=== PATIENT | male | born 1965 | race Caucasian/White ===

== ENCOUNTER 2016-08-11 15:33 | Emergency (ER) | payer OTHER ==
[~2016-08-11] VITALS: Ht 180.3 cm; Wt 63.6 kg
[~2016-08-11 15:33] MED LIST: ATV1 PO; DIPH-416 PO; PROM1SUP19 PR; PRT/40 PO; PXL20 PO
[2016-08-11 15:39] VITALS: TEMP 36.9; Ht 180.3 cm; Wt 63.6 kg
[2016-08-11] MEDS ORDERED: PARO1TAB29 PO (17:17)
[2016-08-11] MEDS ORDERED: ZFRODT/8 SL (17:17)
[2016-08-11] MEDS ORDERED: ONDANSETRON INJ 2 MG/ML 2 ML VIAL IV STA (17:21)
[2016-08-11] MEDS ORDERED: SODIUM CHLORIDE 0.9% 1000ML 2,000 ML IV STA (17:21)
[2016-08-11 18:07] LABS: BASO % 0.1 %; BASO ABS # 0.01 K/uL (0-0.2); COMPLETE YES; EOS % 0.2 %; HEMATOCRIT 44.8 % (42-52); IG% 0.3 %; LYMPH % 28.4 %; LYMPH ABS # 2.81 K/uL (1.2-3.4); MEAN CELL VOLUME 85.5 fL (80-100); MEAN CORPUSCULAR HEMOGLOBIN 32.1 pg (25-34); MEAN CORPUSCULAR HGB CONC 37.5 g/dl (32-36); MONO % 8.6 %; NEUT % 62.4 %; PLATELET COUNT 342 K/uL (130-400); RED BLOOD COUNT 5.24 M/uL (4.7-6.1); WHITE BLOOD COUNT 9.88 K/uL (4.8-10.8)
[2016-08-11 18:23] LABS: ALT/SGPT 32 U/L (12-78); AST/SGOT 17 U/L (15-37); BLOOD UREA NITROGEN 29 mg/dl (7-18); BUN/CREATININE RATIO 26.3 (10-20); CALCIUM 9.7 mg/dl (8.5-10.1); CARBON DIOXIDE 25 mmol/L (21-32); CHLORIDE 99 mmol/L (98-107); GLUCOSE 104 mg/dl (70-99); MAGNESIUM 2.5 mg/dl (1.8-2.4); POTASSIUM 2.9 mmol/L (3.5-5.1); SODIUM 136 mmol/L (136-145)
[2016-08-11 18:26] LABS: ALKALINE PHOSPHATASE 50 U/L (45-117); C-REACTIVE PROTEIN < 0.29 mg/dl (0-0.29)
--- NOTE | 2016-08-11 19:14 | DIAGNOSTIC IMAGING REPORT ---
ABDOMEN 2VIEW W/PA CHEST RTN CLINICAL HISTORY: Nausea, vomiting, lower abdominal pain COMPARISON STUDY: 01/20/2016 FINDINGS: The erect chest reveals no evidence of free air. There is no evidence of focal pulmonary consolidation.] Erect and supine views of the abdomen reveal no abnormally dilated loops of large or small bowel. There are no transition zone to indicate bowel obstruction. IMPRESSION: No evidence of bowel obstruction. No evidence of free air. Electronically signed by: Thomas Schmitt M.D. 08/11/2016 7:13 PM Dictated Date/Time: 08/11/2016 7:12 PM
[2016-08-11] MEDS ORDERED: POTASSIUM CHLORIDE 10 MEQ TABCR PO STA (20:38)
[2016-08-11] MEDS ORDERED: ONDANSETRON HOME PACK 4MG OD TAB PO ONE (20:45)
[2016-08-11] MEDS ORDERED: PROMETHAZINE HCL 25 MG SUPP PR ONE (20:45)
[2016-08-11 20:55] LABS: URINE APPEARANCE CLEAR (CLEAR); URINE BILIRUBIN NEG (NEG); URINE COLOR DK YELLOW; URINE NITRITE NEG (NEG); URINE PH 5.5 (4.5-7.5); URINE SPECIFIC GRAVITY 1.025 (1.000-1.030); UROBILINOGEN NEG (NEG); ZZUR CULT IF INDIC CLEAN CATCH NO
[2016-08-11] MEDS ORDERED: ONDA4TAB10 SL (20:55)
[2016-08-11] MEDS ORDERED: PROM1SUP19 PR (20:55)
--- NOTE | 2016-08-11 20:56 | EMERGENCY ROOM VISIT NOTE ---
History First contact with patient: 16:55 Chief Complaint: ABDOMINAL PAIN Stated Complaint: ABD PAIN,NAUSEA, VOMITING SINCE MONDAY Nursing Triage Summary: pt vomiting since monday, c/o abd pain, states he has had this before and they never know what is wrong with him they given him fluid because he is dehydrated , last bm monday History of Present Illness The patient is a 51 year old male who presents to the Emergency Department by private vehicle for evaluation of his nausea, vomiting, and abdominal pain. The patient has a history of similar symptoms in the past. On Monday morning when he awoke feeling "sick". He developed nausea and vomiting at that point. He had several small bowel movements at that point as well. His symptoms persisted with nausea and vomiting throughout the day. On Monday he felt somewhat better. On Monday morning, his nausea and vomiting had worsened. He reports since that time he has developed pain diffusely through his abdomen. He has headaches as well as dizziness and lightheadedness. He is had an approximate 15 bowel weight loss per family. Patient has been unable tolerate by mouth food and fluids. He reports a prior hernia surgery. Otherwise, there is been no abdominal surgeries otherwise. He rates his current discomfort as a 7/10. He denies any fevers, chills, chest pain, palpitations, shortness of breath, hematemesis, hematochezia, melena, hematuria, or dysuria. The patient does admit to smoking marijuana heavily recently. He also drank alcohol heavily over the weekend as well. Review of Systems A complete 10-point Review of Systems was discussed with the patient, with pertinent positives and negatives listed in the History of Present Illness. All remaining Review of Systems questions can be considered negative unless otherwise specified. Past Medical/Surgical History Medical Problems: (1) bunion surgery (2) GERD (gastroesophageal reflux disease) (3) Hemorrhoid Surgical Problems: (1) H/O colonoscopy (2) H/O hernia repair (3) H/O vasectomy (4) History of esophagogastroduodenoscopy (EGD) (5) S/P herniorrhaphy Family History Diabetes mellitus Heart disease Kidney disease Social History Smoking Status: Former Smoker Alcohol Use: occasionally Drug Use: none Marital Status: Housing Status: lives with family Occupation Status: employed Current/Historical Medications Scheduled Pantoprazole (Pantoprazole Sodium), 1 TAB PO DAILY Paroxetine (Paxil), 40 MG PO DAILY Scheduled PRN Lorazepam (Lorazepam), 1 TAB PO TID PRN for Anxiety Ondansetron (Ondansetron Odt), 8 MG SL Q8 PRN for Nausea Ondasetron Odt (Zofran Odt), 1 TAB SL Q6 PRN for Nausea or Vomiting Promethazine (Phenergan Suppository), 1 SUPP NV Q4H PRN for Nausea Promethazine (Phenergan Suppository), 25 MG NV Q4H PRN for Nausea Allergies Coded Allergies: No Known Allergies (Unverified , 08/11/16) Physical Exam Vital Signs Date Time Temp Pulse Resp B/P Pulse Ox O2 Delivery O2 Flow Rate FiO2 08/11/16 21:21 70 18 137/81 96 08/11/16 19:47 74 18 127/76 97 Room Air 08/11/16 18:03 90 18 129/90 96 Room Air 94 130/79 87 102/75 08/11/16 15:39 36.9 116 18 149/95 97 Room Air Pain Rating (0-10): 7 Physical Exam VITAL SIGNS - Vital signs and nursing notes were reviewed. GENERAL - 51-year-old male appearing his stated age who is in no acute distress. Communicates well with provider and answers questions appropriately. LUNGS - Chest wall symmetric without accessory muscle use, intercostals retractions, or central cyanosis. Normal vesicular breath sounds CTA B/L. No wheezes, rales, or rhonchi appreciated. CARDIAC - RRR with S1/S2. No murmur, rubs, or gallops appreciated. ABDOMEN - Abdominal contour flat and without pulsations or visible masses. BS normoactive all four quadrants. Mild tenderness to palpation appreciated diffusely throughout. No guarding. No Rebound Tenderness. Negative Rovsing's. Negative Sarmiento's. No palpable masses, hepatosplenomegaly, or ascites noted. EXTREMITIES - No clubbing or peripheral cyanosis. No pretibial edema present. +3 /5 radial and dorsalis pedis pulses palpated throughout. PSYCH - A&Ox3 and cooperates fully with examiner. Pt is very pleasant and interacts well with examiner. Medical Decision & Procedures ER Provider Diagnostic Interpretation: Radiological imaging and reports were reviewed by myself. Radiologist's Interpretation as follows: ABDOMEN 2VIEW W/PA CHEST RTN CLINICAL HISTORY: Nausea, vomiting, lower abdominal pain COMPARISON STUDY: 01/20/2016 FINDINGS: The erect chest reveals no evidence of free air. There is no evidence of focal pulmonary consolidation.] Erect and supine views of the abdomen reveal no abnormally dilated loops of large or small bowel. There are no transition zone to indicate bowel obstruction. IMPRESSION: No evidence of bowel obstruction. No evidence of free air. Laboratory Results 08/11/16 17:52 Red Blood Count 5.24, Mean Corpuscular Volume 85.5, Mean Corpuscular Hemoglobin 32.1, Mean Corpuscular Hemoglobin Concent 37.5, Mean Platelet Volume 10.0, Neutrophils (%) (Auto) 62.4, Lymphocytes (%) (Auto) 28.4, Monocytes (%) (Auto) 8.6, Eosinophils (%) (Auto) 0.2, Basophils (%) (Auto) 0.1, Neutrophils # (Auto) 6.16, Lymphocytes # (Auto) 2.81, Monocytes # (Auto) 0.85, Eosinophils # (Auto) 0.02, Basophils # (Auto) 0.01 08/11/16 17:52 Test 08/11/16 17:52 08/11/16 20:30 White Blood Count 9.88 K/uL (4.8-10.8) Red Blood Count 5.24 M/uL (4.7-6.1) Hemoglobin 16.8 g/dL (14.0-18.0) Hematocrit 44.8 % (42-52) Mean Corpuscular Volume 85.5 fL (80-100) Mean Corpuscular Hemoglobin 32.1 pg (25-34) Mean Corpuscular Hemoglobin Concent 37.5 g/dl (32-36) Platelet Count 342 K/uL (130-400) Mean Platelet Volume 10.0 fL (7.4-10.4) Neutrophils (%) (Auto) 62.4 % Lymphocytes (%) (Auto) 28.4 % Monocytes (%) (Auto) 8.6 % Eosinophils (%) (Auto) 0.2 % Basophils (%) (Auto) 0.1 % Neutrophils # (Auto) 6.16 K/uL (1.4-6.5) Lymphocytes # (Auto) 2.81 K/uL (1.2-3.4) Monocytes # (Auto) 0.85 K/uL (0.11-0.59) Eosinophils # (Auto) 0.02 K/uL (0-0.5) Basophils # (Auto) 0.01 K/uL (0-0.2) RDW Standard Deviation 39.4 fL (36.4-46.3) RDW Coefficient of Variation 12.6 % (11.5-14.5) Immature Granulocyte % (Auto) 0.3 % Immature Granulocyte # (Auto) 0.03 K/uL (0.00-0.02) Erythrocyte Sedimentation Rate 15 mm/hr (0-14) Anion Gap 12.0 mmol/L (3-11) Est Creatinine Clear Calc Drug Dose 70.7 ml/min Estimated GFR () 89.0 Estimated GFR (Non- 76.8 BUN/Creatinine Ratio 26.3 (10-20) Calcium Level 9.7 mg/dl (8.5-10.1) Magnesium Level 2.5 mg/dl (1.8-2.4) Total Bilirubin 1.5 mg/dl (0.2-1) Aspartate Amino Transf (AST/SGOT) 17 U/L (15-37) Alanine Aminotransferase (ALT/SGPT) 32 U/L (12-78) Alkaline Phosphatase 50 U/L (45-117) C-Reactive Protein < 0.29 mg/dl (0-0.29) Total Protein 8.8 gm/dl (6.4-8.2) Albumin 4.5 gm/dl (3.4-5.0) Globulin 4.3 gm/dl (2.5-4.0) Albumin/Globulin Ratio 1.0 (0.9-2) Lipase 247 U/L (73-393) Urine Color DK YELLOW Urine Appearance CLEAR (CLEAR) Urine pH 5.5 (4.5-7.5) Urine Specific [place] 1.025 (1.000-1.030) Urine Protein TRACE (NEG) Urine Glucose (UA) NEG (NEG) Urine Ketones 1+ (NEG) Urine Occult Blood NEG (NEG) Urine Nitrite NEG (NEG) Urine Bilirubin NEG (NEG) Urine Urobilinogen NEG (NEG) Urine Leukocyte Esterase TRACE (NEG) Urine WBC (Auto) 1-5 /hpf (0-5) Urine RBC (Auto) 0-4 /hpf (0-4) Urine Hyaline Casts (Auto) 5-10 /lpf (0-5) Urine Epithelial Cells (Auto) 5-10 /lpf (0-5) Urine Bacteria (Auto) NEG (NEG) Urine Opiates Screen NEG (NEG) Urine Methadone, Qualitative NEG (NEG) Urine Barbiturates NEG (NEG) Urine Phencyclidine (PCP) Level NEG (NEG) Ur Amphetamine/Methamphetamine NEG (NEG) MDMA (Ecstasy) Screen NEG (NEG) Urine Benzodiazepines Screen NEG (NEG) Urine Cocaine Metabolite NEG (NEG) Urine Marijuana (THC) POS (NEG) Medications Administered Medications (Trade) Dose Ordered Sig/Leah Route Start Time Stop Time Status Last Admin Dose Admin Sodium Chloride (Nss 1000ml) 2,000 ml @ 999 mls/hr Q2H1M STAT IV 08/11/16 17:21 08/11/16 19:21 DC 08/11/16 18:06 999 MLS/HR Ondansetron HCl (Zofran Inj) 4 mg NOW STAT IV 08/11/16 17:21 08/11/16 17:23 DC 08/11/16 18:07 4 MG Potassium Chloride (Klor-Con M10) 40 meq NOW STAT PO 08/11/16 20:38 08/11/16 20:39 DC 08/11/16 21:15 40 MEQ Promethazine HCl (Phenergan Supp) 50 mg NOW ONCE NV 08/11/16 20:45 08/11/16 20:46 DC 08/11/16 21:15 50 MG Ondansetron HCl (ZOFRAN ODT 4MG Home Pack) 1 homepack UD ONCE PO 08/11/16 20:45 08/11/16 20:46 DC 08/11/16 21:15 1 HOMEPACK ED Course Patient was seen and evaluated by myself. Labs were drawn, saline lock in place. The patient was hydrated with a 2000 mL normal saline bolus. He received 4 mg Zofran intravenously. Obstruction series was obtained. Laboratory results demonstrate no acute leukocytosis, worrisome anemia, or bandemia. The patient's potassium was found to be low at 2.9. Total bili was mildly elevated at 1.5. CRP was not elevated. Patient was reevaluated and feels markedly better at this time. He was treated with 40 mEq of potassium chloride orally. Patient feels much better at this time. He requests to be discharged home. He was provided a home pack for Phenergan as well as Zofran. He is provided prescriptions for both. The patient was educated on refraining from marijuana use. He is instructed to follow-up with his specialists from today's visit. He was educated on worrisome symptoms for return visit to the emergency department. Patient discharged home afebrile and in good condition. Medical Decision Given the patient's presentation and stated complaints, I did elect to perform the above-mentioned workup. The patient presents complaining of abdominal pain as well as nausea and vomiting. Patient has had previous similar episodes in the past. He has no fever leukocytosis. His abdomen is minimally tender to palpation throughout. His symptoms resolved after IV fluid hydration and antinausea medication. At this point, the patient appears markedly better and is requesting discharge. He did request occasions for antinausea in the event that this returns again. I'm suspicious that this could be a component of cyclic vomiting syndrome secondary to his marijuana use. Regardless, the patient will follow closely with his primary care provider for continued management. He will return for changing/worsening symptoms. Patient discharged home afebrile and in good condition. In the evaluation and treatment of this patient, the following differential diagnoses were considered: Appendicitis, Diverticulitis, Diverticulosis, Colitis , Ischemic Colitis, Inflammatory Bowel Disease, Irritable Bowel Disease, Testicular Torsion, Kidney Stone, Pyelonephritis, Hydronephrosis, Cholecystitis , Ascending Cholangitis, Choledocholithiasis, GERD. Impression Primary Impression: Vomiting Additional Impression: Hypokalemia Departure Information Dispostion Home / Self-Care Condition GOOD Prescriptions Promethazine (Phenergan Suppository) 25 Mg Supp 25 MG NV Q4H Y for Nausea for 7 Days, #42 SUPP Prov: Hector Junior PA-C 08/11/16 Ondasetron Odt (ZOFRAN ODT) 4 Mg Tab 1 TAB SL Q6 Y for Nausea or Vomiting for 5 Days, #20 TAB Prov: Hector Junior PA-C 08/11/16 Referrals Juanpablo Vick, D.O. (PCP) Patient Instructions Cyclic Vomiting Syndrome , [facility] Additional Instructions You have been treated in the Emergency Department your Nausea and Vomiting. You have been prescribed Zofran and Phenergan to be used for any nausea or vomiting. Take as prescribed. For pain control, you can use the following [id number] medicines (if >12 yo): - Regular strength (325mg/tab) Tylenol (acetaminophen) 2 tabs every 4-6 hours as needed. Do not exceed 12 tablets in a 24 hour period. Avoid taking more than 4 grams (4000 mg) of Tylenol per day. This includes any other sources of acetaminophen you may take on a regular basis. - Regular strength (200 mg/tab) Advil (ibuprofen) 1-2 tabs every 4-6 hours as needed. Do not exceed a dose of 3200 mg per day. Drink plenty of water and stay well hydrated. As with any trip to the Emergency Department, you should follow-up with your Primary Care Provider from today's visit. Return to the emergency department if your symptoms persist despite treatment plan outlined above or if the following symptoms occur: increased fevers, chills , worsening nausea/vomiting, blood in your stool or urine. Problem Qualifiers Primary Impression: Vomiting Vomiting type: cyclical vomiting Vomiting Intractability: non-intractable Nausea presence: with nausea Qualified Codes: G43.A0 - Cyclical vomiting, not intractable
[2016-08-11 20:57] LABS: MANUAL MICROSCOPIC REQUIRED? NO; REVIEW REQ? NO
[2016-08-11 21:21] VITALS: BP 137/81; PULSE 70; O2SAT 96
[2016-08-11 21:23] LABS: BENZODIAZEPINE, URINE NEG (NEG); COCAINE,URINE NEG (NEG); PHENCYCLIDINE, URINE NEG (NEG)
== END 2016-08-11 21:23 | disposition home or self-care (01) ==
LOC: C.EDB 15:34
DX: G43.A0 Cyclical vomiting, in migraine, not intractable (principal); E87.6 Hypokalemia; Z87.891 Personal history of nicotine dependence; Z83.3 Family history of diabetes mellitus; Z82.49 Family history of ischemic heart disease and other diseases of the circulatory system

== ENCOUNTER 2016-09-06 06:01 | Emergency (ER) | payer OTHER ==
[~2016-09-06] VITALS: Ht 177.8 cm; Wt 67.6 kg
[~2016-09-06 06:01] MED LIST changes: -DIPH-416 PO; +PANT40TA2 PO; +PARO1TAB29 PO; -PRT/40 PO; -PXL20 PO; +ZFRODT/8 SL
[2016-09-06 06:10] VITALS: TEMP 36.7; Ht 177.8 cm; Wt 67.6 kg
--- NOTE | 2016-09-06 07:09 | EMERGENCY ROOM VISIT NOTE ---
History Report prepared by Mary: Danna Simmons Under the Supervision of: Dr. Torrey Owens M.D. First contact with patient: 06:46 Chief Complaint: OTHER COMPLAINT Stated Complaint: SIDE EFFECTS FROM STOPPING MEDICATION History of Present Illness The patient is a 51 year old male who presents to the Emergency Room with complaints of possible side effects from being taken off of a medication. The patient states that he was having relationship troubles with his and his spoke with his PCP, Dr. Vick. He was initially put on Ativan but was taken off of it and put on 20 mg Paxil. His dose was eventually increased to 40 mg Paxil. The patient states that Dr. Vick took the patient off of Paxil but the patient is not sure why. He states that he wasn't having reactions to the medication and is unsure why he could not get the prescription refilled. His last dose of Paxil was 5 days ago. A few days ago, he started having a scratching sensation in his head and dizziness, "it feels like I'm looking at a slideshow with clicking." His symptoms are worse when he is exerting himself or sitting up. He has some improvement laying down on his abdomen with his head hanging off of the bed. The patient was in the emergency room August 11 for vomiting and states that he experienced similar symptoms to what he has had the past few days because he couldn't keep down his Paxil. He is suspicious that he is withdrawing from Paxil. Denies ear ringing, hearing changes, visual changes, headache, chest pain, shortness of breath, or other complaints. Source of History: patient Onset: a few days ago Position: other (global) Timing: other (persistent) Associated Symptoms: + diarrhea, No SOB, No chest pain, No headache Note: Other symptoms: dizziness, head scratching Review of Systems All systems have been listed, reviewed, and are negative other than those previously mentioned. Please see Additional Medical History Sheet. Past Medical & Surgical Medical Problems: (1) bunion surgery (2) GERD (gastroesophageal reflux disease) (3) Hemorrhoid Surgical Problems: (1) H/O colonoscopy (2) H/O hernia repair (3) H/O vasectomy (4) History of esophagogastroduodenoscopy (EGD) (5) S/P herniorrhaphy Family History Diabetes mellitus Heart disease Kidney disease Social History Smoking Status: Current Every Day Smoker Alcohol Use: occasionally Drug Use: none Marital Status: Housing Status: lives with family Occupation Status: employed Current/Historical Medications Scheduled Pantoprazole (Pantoprazole Sodium), 1 TAB PO DAILY Paroxetine Hcl (Paxil), 1 TAB PO DAILY Allergies Coded Allergies: No Known Allergies (Unverified , 09/06/16) Physical Exam Vital Signs Date Time Temp Pulse Resp B/P Pulse Ox O2 Delivery O2 Flow Rate FiO2 09/06/16 08:24 74 16 156/100 98 Room Air 09/06/16 06:22 63 09/06/16 06:10 36.7 77 18 177/94 95 Room Air Physical Exam GENERAL: Patient awake, alert, oriented x 3. Lying in prone position with head down over edge of bed. He appears to be in moderate distress. Patient seems slightly agitated. Patient follows commands. Patient does not appear toxic. Patient is adequately hydrated and well-nourished. SKIN: No erythema, pallor, cyanosis or rash HEENT: Normal head, pupils equal, reactive to light and accommodation. No nystagmus. Left eye pterygium. Small old scar on right TM, left TM normal. Oral cavity and posterior pharynx appear normal. Neck: Without adenopathy, no neck vein distention. LUNGS: Clear to auscultation. No wheezes, no rales, no rhonchi. HEART: No murmurs. No gallops. No rubs ABDOMEN: No masses, no rebound, no hepatomegaly or splenomegaly. EXTREMITIES: No signs of trauma. No pedal or pretibial edema. No calf or thigh tenderness. NEUROLOGIC: Cranial nerves II-XII within normal limits. No gross motor sensory function deficits. PSYCHIATRIC: Patient is awake alert and oriented. He denies homicidal/suicidal ideation. Medical Decision & Procedures ER Provider Diagnostic Interpretation: Radiology results as stated below per my review and radiologist interpretation: HEAD CT NONCONTRAST CT DOSE: 614.27 mGy.cm HISTORY: DIZZINESS TECHNIQUE: Multiaxial CT images of the head were performed without the use of intravenous contrast. Automated exposure control was utilized for this study. Comparison: Head CT 05/18/2012. Findings: The paranasal sinuses and mastoid air cells are clear. The calvarium and skull base are intact. The ventricles and sulci are within normal limits. There is no mass, hematoma, midline shift, or acute infarct. Impression: No acute intracranial abnormality. Electronically signed by: Carlos Alberto Abreu M.D. 09/06/2016 7:36 AM Dictated Date/Time: 09/06/2016 7:33 AM Laboratory Results 09/06/16 07:18 09/06/16 07:18 Test 09/06/16 07:18 Red Blood Count 4.05 M/uL (4.7-6.1) Mean Corpuscular Volume 90.1 fL (80-100) Mean Corpuscular Hemoglobin 31.4 pg (25-34) Mean Corpuscular Hemoglobin Concent 34.8 g/dl (32-36) RDW Standard Deviation 42.9 fL (36.4-46.3) RDW Coefficient of Variation 13.0 % (11.5-14.5) Mean Platelet Volume 9.6 fL (7.4-10.4) Anion Gap 8.0 mmol/L (3-11) Est Creatinine Clear Calc Drug Dose 97.2 ml/min Estimated GFR () 116.1 Estimated GFR (Non- 100.2 BUN/Creatinine Ratio 15.1 (10-20) Calcium Level 8.6 mg/dl (8.5-10.1) Total Bilirubin 0.9 mg/dl (0.2-1) Aspartate Amino Transf (AST/SGOT) 36 U/L (15-37) Alanine Aminotransferase (ALT/SGPT) 34 U/L (12-78) Alkaline Phosphatase 45 U/L (45-117) Total Protein 7.7 gm/dl (6.4-8.2) Albumin 4.1 gm/dl (3.4-5.0) Globulin 3.6 gm/dl (2.5-4.0) Albumin/Globulin Ratio 1.1 (0.9-2) Laboratory results as stated above per my review. Medications Administered Medications (Trade) Dose Ordered Sig/Leah Route Start Time Stop Time Status Last Admin Dose Admin Paroxetine HCl (pAXil TAB) 10 mg NOW ONCE PO 09/06/16 09:00 09/06/16 09:01 DC 09/06/16 08:58 10 MG ED Course 0650: Past medical records reviewed. The patient was evaluated in room B3B. A complete history and physical examination was performed. 0822: I discussed the case with Dr. Vick. He requested that I give the patient 10 mg Paxil and strongly encourage the patient to follow up with him in the office as soon as possible. 0830: I discussed today's findings and my conversation with Dr. Vick with the patient. The patient denies suicidal or homicidal ideation. He verbalized agreement of the treatment plan and will follow with Dr. Vick. The patient was discharged home. Medical Decision Differential includes but is not limited to Paxil withdrawal, vestibular neuronitis, benign positional vertigo, anemia, metabolic disorder, depression, personality disorder. Multiple labs and imaging were obtained. Please see above. The patient is no evidence of an intracranial lesion/pathology. The patient denies suicidal/ homicidal ideation. I did discuss the case with pain patient's family physician , Dr. Naranjo. He has agreed to have the patient back on Paxil at a low dose. The patient has agreed to follow-up with Dr. Naranjo. Whether the dizziness is related to withdrawal from Paxil remains to be seen. 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 Consults Time Called: 803 Consulting Physician: Dr. Vick Returned Call: 08 I discussed the case with him. He requested that I give the patient 10 mg Paxil and strongly encourage the patient to follow up with him in the office as soon as possible. Impression Primary Impression: Dizziness Scribe Attestation The scribe's documentation has been prepared under my direction and personally reviewed by me in its entirety. I confirm that the note above accurately reflects all work, treatment, procedures, and medical decision making performed by me. Departure Information Dispostion Home / Self-Care Prescriptions Paroxetine Hcl (PAXIL) 10 Mg Tab 1 TAB PO DAILY for 30 Days, #30 TAB 3 Refills Prov: Torrey Owens M.D. 09/06/16 Referrals No Doctor, Assigned (PCP) Patient Instructions My [facility] Additional Instructions 1 Paxil daily. Continue all of your current medications as prescribed. Follow-up with Dr. Naranjo within the next 10 days. Call today for an appointment. 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
[2016-09-06 07:30] LABS: HEMATOCRIT 36.5 % (42-52); MEAN CELL VOLUME 90.1 fL (80-100); MEAN CORPUSCULAR HEMOGLOBIN 31.4 pg (25-34); MEAN CORPUSCULAR HGB CONC 34.8 g/dl (32-36); MEAN PLATELET VOLUME 9.6 fL (7.4-10.4); PLATELET COUNT 271 K/uL (130-400); RED BLOOD COUNT 4.05 M/uL (4.7-6.1); WHITE BLOOD COUNT 4.52 K/uL (4.8-10.8)
--- NOTE | 2016-09-06 07:37 | DIAGNOSTIC IMAGING REPORT ---
HEAD CT NONCONTRAST CT DOSE: 614.27 mGy.cm HISTORY: DIZZINESS TECHNIQUE: Multiaxial CT images of the head were performed without the use of intravenous contrast. Automated exposure control was utilized for this study. Comparison: Head CT 05/18/2012. Findings: The paranasal sinuses and mastoid air cells are clear. The calvarium and skull base are intact. The ventricles and sulci are within normal limits. There is no mass, hematoma, midline shift, or acute infarct. Impression: No acute intracranial abnormality. Electronically signed by: Carlos Alberto Abreu M.D. 09/06/2016 7:36 AM Dictated Date/Time: 09/06/2016 7:33 AM
[2016-09-06 07:47] LABS: BUN/CREATININE RATIO 15.1 (10-20); CALCIUM 8.6 mg/dl (8.5-10.1); CREATININE 0.85 mg/dl (0.60-1.40); POTASSIUM 3.8 mmol/L (3.5-5.1)
[2016-09-06 07:50] LABS: ALB/GLOB RATIO 1.1 (0.9-2)
[2016-09-06 08:24] VITALS: BP 156/100; PULSE 74; O2SAT 98
[2016-09-06] MEDS ORDERED: PARO10TA PO (08:38)
[2016-09-06] MEDS ORDERED: PAROXETINE 20 MG TAB PO ONE (09:00)
[2016-12-22] MEDS ORDERED: PANT40TA2 PO (16:04)
== END 2016-09-06 08:59 | disposition home or self-care (01) ==
LOC: C.EDB 06:03
DX: R42 Dizziness and giddiness (principal); Z83.3 Family history of diabetes mellitus; Z82.49 Family history of ischemic heart disease and other diseases of the circulatory system; F17.200 Nicotine dependence, unspecified, uncomplicated

== ENCOUNTER 2016-10-09 07:17 | Emergency (ER) | payer OTHER ==
[~2016-10-09] VITALS: Ht 175.3 cm; Wt 63.8 kg
[~2016-10-09 07:17] MED LIST changes: -ATV1 PO; +PARO10TA PO; -PARO1TAB29 PO; -PROM1SUP19 PR; -ZFRODT/8 SL
[2016-10-09 07:22] VITALS: TEMP 36.9; Ht 175.3 cm; Wt 63.8 kg
[2016-10-09] MEDS ORDERED: DEXAMETHASONE SOD INJ 10 MG/ML VIAL IV STA ×2 (07:33→08:33)
--- NOTE | 2016-10-09 07:50 | EMERGENCY ROOM VISIT NOTE ---
History First contact with patient: 07:24 Chief Complaint: RASH Stated Complaint: RASH History of Present Illness The patient is a 51 year old male who presents to the Emergency Room with complaints of "rash". The patient states that he has a history of contact dermatitis, as he usually takes care of a cemetery, with a lot of mowing and trimming. He states that he finished mowing the cemetery this past Monday, and on Monday evening he noticed a red rash on his left foot. He notes that it is been spreading, and is very itchy. He denies any pain in the region. He states that he has been seen for similar, and has had to have shots in the past. He states that he has tried topical IV rest, and calamine lotion without relief. He denies any blood problems, chest pain, shortness of breath, fevers, chills or any other complaints. Review of Systems A complete 6-point Review of Systems was discussed with the patient, with pertinent positives and negatives listed in the History of Present Illness. All remaining Review of Systems questions can be considered negative unless otherwise specified. Past Medical/Surgical History Medical Problems: (1) bunion surgery (2) GERD (gastroesophageal reflux disease) (3) Hemorrhoid Surgical Problems: (1) H/O colonoscopy (2) H/O hernia repair (3) H/O vasectomy (4) History of esophagogastroduodenoscopy (EGD) (5) S/P herniorrhaphy Family History Diabetes mellitus Heart disease Kidney disease Social History Smoking Status: Current Every Day Smoker Alcohol Use: occasionally Drug Use: none Marital Status: Housing Status: lives with family Occupation Status: employed Current/Historical Medications Scheduled Prednisone (Prednisone), 0 PO DAILY Allergies Coded Allergies: No Known Allergies (Unverified , 10/09/16) Physical Exam Vital Signs Date Time Temp Pulse Resp B/P Pulse Ox O2 Delivery O2 Flow Rate FiO2 10/09/16 08:50 59 18 152/95 99 Room Air 10/09/16 07:22 36.9 79 16 152/92 97 Room Air Physical Exam VITAL SIGNS - Vital signs and nursing notes were reviewed. Afebrile, hypertensive 152/92, non-tachycardic and is saturating well on room air 97%. GENERAL - 51-year-old male appearing his stated age who is in no acute distress. Communicates well with provider and answers questions appropriately. SKIN - there is a slightly raised erythematous rash overlying the anterior portion of the left foot at the metatarsal region. This then extends up the anterior portion of the lucas and a small little subcentimeter slightly raised erythematous papules. This does not progress past the left thigh proximally, and the only other area on his body that exhibits similar rash is on the lateral dorsal aspect of the right forearm. HEAD - NC/AT. EYES - PERRL with EOMI bilaterally. Sclera anicteric. Palpebral conjunctiva pink and moist with no injection noted. EARS - No deformities of external structures noted on gross examination bilaterally. NOSE - Midline and without cyanosis. No epistaxis or purulent drainage noted. MOUTH/OROPHARYNX - Without perioral cyanosis. Buccal mucosa pink and moist and without leukoplakia. Tongue midline with equal elevation of palate bilaterally. No tonsillar hypertrophy, erythema, or exudates noted. Fair dentition noted. NECK - Neck with FROM. Supple to palpation. No lymphadenopathy noted. No nuchal rigidity. LUNGS - Chest wall symmetric without accessory muscle use, intercostals retractions, or central cyanosis. Normal vesicular breath sounds CTA B/L. No wheezes, rales, or rhonchi appreciated. CARDIAC - RRR with S1/S2. No murmur, rubs, or gallops appreciated. EXTREMITIES - No clubbing or peripheral cyanosis. No pretibial edema present. He is neurovascularly intact in the lower extremities. No strength deficit. No tenderness to palpation of the lower extremities. +5/5 strength noted in UE/ LE bilaterally. NEUROLOGIC - Cranial nerves II through XII grossly intact. PSYCH - A&Ox3 and cooperates fully with examiner. Pt is very pleasant and interacts well with examiner. Medical Decision & Procedures Laboratory Results 10/09/16 07:46 Red Blood Count 4.36, Mean Corpuscular Volume 90.1, Mean Corpuscular Hemoglobin 30.7, Mean Corpuscular Hemoglobin Concent 34.1, Mean Platelet Volume 9.7, Neutrophils (%) (Auto) 50.3, Lymphocytes (%) (Auto) 35.2, Monocytes (%) (Auto) 7.9, Eosinophils (%) (Auto) 6.0, Basophils (%) (Auto) 0.4, Neutrophils # (Auto) 2.62, Lymphocytes # (Auto) 1.83, Monocytes # (Auto) 0.41, Eosinophils # (Auto) 0.31, Basophils # (Auto) 0.02 10/09/16 07:46 Test 10/09/16 07:46 White Blood Count 5.20 K/uL (4.8-10.8) Red Blood Count 4.36 M/uL (4.7-6.1) Hemoglobin 13.4 g/dL (14.0-18.0) Hematocrit 39.3 % (42-52) Mean Corpuscular Volume 90.1 fL (80-100) Mean Corpuscular Hemoglobin 30.7 pg (25-34) Mean Corpuscular Hemoglobin Concent 34.1 g/dl (32-36) Platelet Count 298 K/uL (130-400) Mean Platelet Volume 9.7 fL (7.4-10.4) Neutrophils (%) (Auto) 50.3 % Lymphocytes (%) (Auto) 35.2 % Monocytes (%) (Auto) 7.9 % Eosinophils (%) (Auto) 6.0 % Basophils (%) (Auto) 0.4 % Neutrophils # (Auto) 2.62 K/uL (1.4-6.5) Lymphocytes # (Auto) 1.83 K/uL (1.2-3.4) Monocytes # (Auto) 0.41 K/uL (0.11-0.59) Eosinophils # (Auto) 0.31 K/uL (0-0.5) Basophils # (Auto) 0.02 K/uL (0-0.2) RDW Standard Deviation 41.4 fL (36.4-46.3) RDW Coefficient of Variation 12.6 % (11.5-14.5) Immature Granulocyte % (Auto) 0.2 % Immature Granulocyte # (Auto) 0.01 K/uL (0.00-0.02) Erythrocyte Sedimentation Rate 3 mm/hr (0-14) Anion Gap 7.0 mmol/L (3-11) Est Creatinine Clear Calc Drug Dose 83.0 ml/min Estimated GFR () 107.6 Estimated GFR (Non- 92.8 BUN/Creatinine Ratio 11.2 (10-20) Calcium Level 9.4 mg/dl (8.5-10.1) C-Reactive Protein < 0.29 mg/dl (0-0.29) Lyme Disease IgG Antibody NEG (NEG) Medications Administered Medications (Trade) Dose Ordered Sig/Leah Route Start Time Stop Time Status Last Admin Dose Admin Diphenhydramine HCl (Benadryl Cap) 25 mg NOW STAT PO 10/09/16 07:33 10/09/16 07:36 DC 10/09/16 07:39 25 MG Dexamethasone Sodium Phosphate (Decadron Inj) 10 mg NOW STAT IV 10/09/16 08:33 10/09/16 08:34 DC 10/09/16 08:44 10 MG Medical Decision Patient was seen and evaluated as above. After obtaining a thorough history and physical examination IV access was initiated, and the above workup was performed. Patient presents with what is most like a contact dermatitis, however due to its presentation did want to rule out any underlying emergent blood dyscrasia. CBC reveals no leukocytosis, slight anemia noted with hemoglobin of 13.4. ESR is normal. PRP unremarkable for acute process, CRP is normal. Patient notes that he does have a history of Lyme disease of which he believes he was treated for, but given his rash did feel that it would be important to identify any current Lyme. At this time the test is pending. Patient will be notified if positive. The patient was given Benadryl, and Decadron. I do suspect contact dermatitis, but it is spreading up his left leg and on his arm. He will be given a tapered dose of prednisone. He is to follow -up regarding today's visit by identifying if family doctor by calling first thing tomorrow morning. Patient was educated upon worrisome symptoms which to return, had questions prior to discharge and was discharged home in good condition. In evaluation treatment of this patient the following differential diagnoses were entertained: Contact dermatitis, Lyme, blood dyscrasia, among others. Impression Primary Impression: Contact dermatitis Additional Impression: Anemia Departure Information Dispostion Home / Self-Care Condition GOOD Prescriptions Prednisone (Prednisone) 20 Mg Tab 0 PO DAILY, #18 TAB 3 DAILY FOR 3 DAYS, THEN 2 DAILY FOR 3 DAYS, THEN 1 DAILY FOR 3 DAYS. Prov: Raphael Silveira PA-C 10/09/16 Referrals No Doctor, Assigned (PCP) Patient Instructions My [facility] Additional Instructions You have been treated in the Emergency Department for an Allergic Reaction from likely contact with plants called contact dermitis (skin irritation). You have been treated and monitored in the Emergency Department appropriately. You should take Benadryl (diphenhydramine) 25 mg orally every 6 hours for the next 5-7 days. This medication is [id number] and you will NOT need a prescription to purchase this at your local pharmacy. You should continue taking the Benadryl for the COMPLETION of the 5-7 days. This is to prevent a rebound allergic reaction in the event that allergens are still present in your system. You have been prescribed Prednisone taken orally. This is an anti-inflammatory medicine to be used to help minimize your symptoms. You should take the COMPLETE course of the medication. As with every Emergency Department visit, you should follow-up with your primary care provider in 2-3 days for reevaluation. (As we discussed please call Monday morning to surrounding family practice offices to identify no family doctor.) It is recommended that if your rash would persist, worsen or if you develop any new/concerning symptoms please return medially. Return to the Emergency Department if your current symptoms worsen despite treatment course outlined above, or if you develop any of the following symptoms : wheezing, tongue or face swelling, tightness in your throat, shortness of breath, or fainting. Problem Qualifiers
[2016-10-09 07:58] LABS: BASO % 0.4 %; BASO ABS # 0.02 K/uL (0-0.2); COMPLETE YES; HEMATOCRIT 39.3 % (42-52); IG% 0.2 %; LYMPH % 35.2 %; LYMPH ABS # 1.83 K/uL (1.2-3.4); MEAN CELL VOLUME 90.1 fL (80-100); MEAN CORPUSCULAR HEMOGLOBIN 30.7 pg (25-34); MEAN CORPUSCULAR HGB CONC 34.1 g/dl (32-36); MEAN PLATELET VOLUME 9.7 fL (7.4-10.4); MONO % 7.9 %; NEUT % 50.3 %; PLATELET COUNT 298 K/uL (130-400); RED BLOOD COUNT 4.36 M/uL (4.7-6.1)
[2016-10-09 08:14] LABS: BLOOD UREA NITROGEN 11 mg/dl (7-18); BUN/CREATININE RATIO 11.2 (10-20); C-REACTIVE PROTEIN < 0.29 mg/dl (0-0.29); CARBON DIOXIDE 28 mmol/L (21-32); CHLORIDE 104 mmol/L (98-107); CREATININE 0.94 mg/dl (0.60-1.40); GLUCOSE 110 mg/dl (70-99); POTASSIUM 3.7 mmol/L (3.5-5.1); SODIUM 139 mmol/L (136-145)
[2016-10-09 08:23] LABS: CALCIUM 9.4 mg/dl (8.5-10.1)
[2016-10-09] MEDS ORDERED: PRED20TA PO (08:34)
[2016-10-09 08:50] VITALS: BP 152/95; PULSE 59; O2SAT 99
[2016-10-09 09:06] LABS: LYME DISEASE AB IGG NEG (NEG)
[2016-10-09 09:13] LABS: LYME DISEASE AB IGM EQUIVOCAL (NEG)
[2016-10-13 00:29] LABS: 18KDIGG BAND NONREACTIVE (NONREACTIVE); 23KDIGG BAND NONREACTIVE (NONREACTIVE); 23KDIGM BAND REACTIVE (NONREACTIVE); 28KDIGG BAND NONREACTIVE (NONREACTIVE); 30KDIGG BAND NONREACTIVE (NONREACTIVE); 39KDIGG BAND NONREACTIVE (NONREACTIVE); 39KDIGM BAND NONREACTIVE (NONREACTIVE); 41KDIGG BAND REACTIVE (NONREACTIVE); 41KDIGM BAND NONREACTIVE (NONREACTIVE); 45KDIGG BAND NONREACTIVE (NONREACTIVE); 58KDIGG BAND NONREACTIVE (NONREACTIVE); 66KDIGG BAND NONREACTIVE (NONREACTIVE); 93KDIGG BAND NONREACTIVE (NONREACTIVE)
[2016-12-22] MEDS ORDERED: PANT40TA2 PO (16:04)
== END 2016-10-09 08:58 | disposition home or self-care (01) ==
LOC: C.EDB 07:19 → C.EDA 08:58
DX: L25.9 Unspecified contact dermatitis, unspecified cause (principal); D64.9 Anemia, unspecified; Z83.3 Family history of diabetes mellitus; Z82.49 Family history of ischemic heart disease and other diseases of the circulatory system; F17.200 Nicotine dependence, unspecified, uncomplicated

== ENCOUNTER 2016-12-22 15:14 | Emergency (ER) | payer OTHER ==
[~2016-12-22] VITALS: Ht 177.8 cm; Wt 57.2 kg
[~2016-12-22 15:14] MED LIST changes: -PANT40TA2 PO; -PARO10TA PO; +PRED20TA PO
[2016-12-22 15:25] VITALS: TEMP 36.6; Ht 177.8 cm; Wt 57.2 kg
[2016-12-22] MEDS ORDERED: SODIUM CHLORIDE 0.9% 1000ML 2,000 ML IV STA (15:43)
[2016-12-22] MEDS ORDERED: MoRPHine SULFATE 4 MG/ML 1 ML CARP\\VIAL IV STA (15:43)
[2016-12-22] MEDS ORDERED: ONDANSETRON INJ 2 MG/ML 2 ML VIAL IV STA (15:43)
[2016-12-22] MEDS ORDERED: OPTIRAY 320 IV PRN (16:00)
[2016-12-22] MEDS ORDERED: CRAN500C2 PO (16:04)
[2016-12-22] MEDS ORDERED: MULT-513 PO (16:04)
[2016-12-22] MEDS ORDERED: PRT/40 PO (16:04)
[2016-12-22] MEDS ORDERED: CALC600T9 PO (16:04)
[2016-12-22] MEDS ORDERED: KRIL1000 PO (16:04)
[2016-12-22] MEDS ORDERED: FERGON PO (16:04)
[2016-12-22 16:19] LABS: BASO % 0.2 %; BASO ABS # 0.02 K/uL (0-0.2); COMPLETE YES; IG% 0.4 %; LYMPH % 12.5 %; MEAN CELL VOLUME 88.9 fL (80-100); MEAN CORPUSCULAR HEMOGLOBIN 30.4 pg (25-34); MEAN CORPUSCULAR HGB CONC 34.3 g/dl (32-36); MEAN PLATELET VOLUME 8.8 fL (7.4-10.4); NEUT % 83.9 %; PLATELET COUNT 495 K/uL (130-400); WHITE BLOOD COUNT 8.01 K/uL (4.8-10.8)
[2016-12-22 16:36] LABS: BUN/CREATININE RATIO 23.5 (10-20); CALCIUM 9.6 mg/dl (8.5-10.1); CREATININE 0.83 mg/dl (0.60-1.40); MAGNESIUM 2.1 mg/dl (1.8-2.4); POTASSIUM 3.9 mmol/L (3.5-5.1)
--- NOTE | 2016-12-22 16:43 | EMERGENCY ROOM VISIT NOTE ---
History First contact with patient: 15:32 Chief Complaint: ABDOMINAL PAIN Stated Complaint: NAUSEA, STOMACH PAINS, RECENT COUGH, LUNG ISSUES Nursing Triage Summary: patient reports abdominal pain "behind belly button" since last night with n/v. Patient reports recently increased weight loss and weakness. History of Present Illness The patient is a 51 year old male who presents to the Emergency Room with complaints of abdominal pain and nausea/vomiting that came on suddenly last night. Patient states he had dinner and felt fine initially, then started vomiting and developed abdominal pain in the center of his abdomen, he has not been able to keep anything down since. He describes the abdominal pain as constant, aching, worse with vomiting, better with rest, does not radiate, is 6/ 10. He states he had a normal bowel movement yesterday, but has not moved his bowels since and does not think he is passing gas today. In addition to these complaints, he reports a cough for the past 2 months, as well as a 30-40 pound unintentional weight loss in the past 2-3 months. He does admit to smoking cigars, approximately 8 per day, as well as occasional marijuana, though he states he has not used any of this in several weeks. He does also admit to drinking alcohol regularly, his states probably 2-4 drinks per day and that he drinks most days. He states he has not been evaluated for the weight loss or the cough due to being in the process of switching PCPs. He denies headache, neck pain, chest pain, shortness of breath, back pain, diarrhea, constipation, blood in stool, blood in vomit, urinary symptoms, rash. Review of Systems A complete 10 point review of systems was reviewed with the patient with pertinent positives and negatives as per history of present illness. All else were negative. Past Medical/Surgical History Medical Problems: (1) bunion surgery (2) GERD (gastroesophageal reflux disease) (3) Hemorrhoid Surgical Problems: (1) H/O colonoscopy (2) H/O hernia repair (3) H/O vasectomy (4) History of esophagogastroduodenoscopy (EGD) (5) S/P herniorrhaphy Family History Diabetes mellitus Heart disease Kidney disease Social History Smoking Status: Current Every Day Smoker Alcohol Use: heavy Drug Use: none, marijuana Marital Status: Housing Status: lives with family Occupation Status: employed Current/Historical Medications Scheduled Calcium Carbonate-Vitamin D (Calcium + D), 1 TAB PO DAILY Cranberry (Vaccinium Macrocarp (Cranberry), 500 MG PO DAILY Krill Oil (Krill Oil), 1 CAP PO DAILY Multivitamins/Minerals (Mvi With Minerals), 1 TAB PO DAILY Ondasetron Odt (Zofran Odt), 4 MG SL Q6H Pantoprazole (Pantoprazole Sodium), 40 MG PO DAILY [Fergon], 1 TAB PO DAILY Allergies Coded Allergies: No Known Allergies (Unverified , 10/09/16) Physical Exam Vital Signs Date Time Temp Pulse Resp B/P (MAP) Pulse Ox O2 Delivery O2 Flow Rate FiO2 12/22/16 19:07 53 16 167/92 95 12/22/16 18:29 56 16 166/87 96 Room Air 12/22/16 17:51 54 12/22/16 17:46 54 15 158/83 96 Room Air 12/22/16 17:27 55 15 192/92 Room Air 12/22/16 15:25 36.6 59 20 190/99 98 Room Air Physical Exam CONSTITUTIONAL: No acute distress, but patient generally appears uncomfortable. Moderately dehydrated. Well appearing and well nourished. Alert and oriented X 4 with normal affect. HEENT: Normocephalic, atraumatic. Pupils equal, round and reactive to light, EOMI. TMs normal. Pharynx normal. Dry mucous membranes. NECK: Supple, full active range of motion without discomfort. RESPIRATORY: []Clear to auscultation bilaterally with no wheezing, crackles, rhonchi or stridor. Equal expansion bilaterally. CARDIOVASCULAR: Regular rate and rhythm with no murmurs, rubs or gallops. Normal peripheral perfusion. No edema. GASTROINTESTINAL: Soft,nondistended. Hypoactive bowel sounds in all quadrants. Diffuse abdominal tenderness to palpation, most significant in the periumbilical and epigastric region. MUSCULOSKELETAL: Full range of motion of all joints without discomfort. INTEGUMENTARY: No rash or other significant dermatologic conditions noted. NEUROLOGIC: Cranial nerves II-XII grossly intact. No focal neurologic deficits noted. Medical Decision & Procedures ER Provider Diagnostic Interpretation: CT OF THE CHEST WITH IV CONTRAST CLINICAL HISTORY: Chronic cough and weight loss. COMPARISON STUDY: CTA of the chest abdomen pelvis December 07, 2011 and Chest radiograph August 11, 2016. TECHNIQUE: Following IV administration of 120 mL of Optiray-320, helical axial images of the chest were obtained. Sagittal and coronal reconstructions were viewed as well as maximal intensity projections on an independent 3-D workstation. A dose lowering technique was utilized adhering to the principles of ALARA. CT DOSE: 572.83 mGy.cm FINDINGS: No enlarged axillary, mediastinal or hilar lymph nodes are present. The size of the heart is normal. There is no pericardial effusion. There is mild dilatation of the ascending aorta which measures 4.1 cm at the level the main pulmonary artery. There is no evidence of thoracic aortic dissection. The central airways are patent. There is no consolidation to suggest pneumonia. There is mild multifocal mucoid impaction within the right lower lobe bronchi. No pneumothorax or pleural effusion is present. There are no pulmonary nodules. No suspicious osseous lesions are present. The abdomen and pelvis will be reported separately. However, note is made of several small hepatic and right renal cysts. IMPRESSION: 1. No consolidation to suggest pneumonia. Minimal multifocal mucoid impaction within the right lower lobe. 2. No evidence of malignancy within the chest. 3. Mild dilatation of the ascending aorta which measures 4.1 cm. ABD/PELVIS IV CONTRAST ONLY CT DOSE: HISTORY: Pain eval SBO, infection, mass TECHNIQUE: Multiaxial CT images of the abdomen and pelvis were performed following the use of intravenous contrast. A dose lowering technique was utilized adhering to the principles of ALARA. COMPARISON STUDY: 01/17/2016 FINDINGS: Lung bases are clear. Mild stable hepatomegaly. Considerable decrease in body fat compared to the prior exam. Kidneys enhance uniformly. Small right renal cyst unchanged. Bowel pattern is again nonobstructive. IMPRESSION: No significant abnormality identified within the abdomen or pelvis. Mild stable hepatomegaly. Interval decrease in body fat content compared to the prior exam. Nonobstructive bowel pattern. Laboratory Results 12/22/16 16:05 Red Blood Count 4.50, Mean Corpuscular Volume 88.9, Mean Corpuscular Hemoglobin 30.4, Mean Corpuscular Hemoglobin Concent 34.3, Mean Platelet Volume 8.8, Neutrophils (%) (Auto) 83.9, Lymphocytes (%) (Auto) 12.5, Monocytes (%) (Auto) 3.0, Eosinophils (%) (Auto) 0.0, Basophils (%) (Auto) 0.2, Neutrophils # (Auto) 6.72, Lymphocytes # (Auto) 1.00, Monocytes # (Auto) 0.24, Eosinophils # (Auto) 0.00, Basophils # (Auto) 0.02 12/22/16 16:05 Test 12/22/16 16:05 12/22/16 16:15 12/22/16 17:17 12/22/16 17:40 White Blood Count 8.01 K/uL (4.8-10.8) Red Blood Count 4.50 M/uL (4.7-6.1) Hemoglobin 13.7 g/dL (14.0-18.0) Hematocrit 40.0 % (42-52) Mean Corpuscular Volume 88.9 fL (80-100) Mean Corpuscular Hemoglobin 30.4 pg (25-34) Mean Corpuscular Hemoglobin Concent 34.3 g/dl (32-36) Platelet Count 495 K/uL (130-400) Mean Platelet Volume 8.8 fL (7.4-10.4) Neutrophils (%) (Auto) 83.9 % Lymphocytes (%) (Auto) 12.5 % Monocytes (%) (Auto) 3.0 % Eosinophils (%) (Auto) 0.0 % Basophils (%) (Auto) 0.2 % Neutrophils # (Auto) 6.72 K/uL (1.4-6.5) Lymphocytes # (Auto) 1.00 K/uL (1.2-3.4) Monocytes # (Auto) 0.24 K/uL (0.11-0.59) Eosinophils # (Auto) 0.00 K/uL (0-0.5) Basophils # (Auto) 0.02 K/uL (0-0.2) RDW Standard Deviation 42.8 fL (36.4-46.3) RDW Coefficient of Variation 13.1 % (11.5-14.5) Immature Granulocyte % (Auto) 0.4 % Immature Granulocyte # (Auto) 0.03 K/uL (0.00-0.02) Anion Gap 5.0 mmol/L (3-11) Est Creatinine Clear Calc Drug Dose 84.2 ml/min Estimated GFR () 117.3 Estimated GFR (Non- 101.2 BUN/Creatinine Ratio 23.5 (10-20) Calcium Level 9.6 mg/dl (8.5-10.1) Magnesium Level 2.1 mg/dl (1.8-2.4) Total Bilirubin 0.4 mg/dl (0.2-1) Direct Bilirubin 0.1 mg/dl (0-0.2) Aspartate Amino Transf (AST/SGOT) 29 U/L (15-37) Alanine Aminotransferase (ALT/SGPT) 59 U/L (12-78) Alkaline Phosphatase 103 U/L (45-117) Total Protein 8.7 gm/dl (6.4-8.2) Albumin 4.1 gm/dl (3.4-5.0) Lipase 84 U/L (73-393) Bedside Lactic Acid Venous 1.46 mmol/L (0.90-1.70) Ethyl Alcohol mg/dL < 3.0 mg/dl (0-3) Urine Color YELLOW Urine Appearance CLEAR (CLEAR) Urine pH 7.0 (4.5-7.5) Urine Specific [place] > 1.045 (1.000-1.030) Urine Protein NEG (NEG) Urine Glucose (UA) NEG (NEG) Urine Ketones NEG (NEG) Urine Occult Blood NEG (NEG) Urine Nitrite NEG (NEG) Urine Bilirubin NEG (NEG) Urine Urobilinogen NEG (NEG) Urine Leukocyte Esterase NEG (NEG) Medications Administered Medications (Trade) Dose Ordered Sig/Leah Route Start Time Stop Time Status Last Admin Dose Admin Sodium Chloride 2,000 ml @ 999 mls/hr Q2H1M STAT IV 12/22/16 15:43 12/22/16 17:43 DC 12/22/16 16:16 999 MLS/HR Morphine Sulfate (MoRPHine SULFATE INJ) 4 mg NOW STAT IV 12/22/16 15:43 12/22/16 15:49 DC 12/22/16 16:16 4 MG Ondansetron HCl (Zofran Inj) 4 mg NOW STAT IV 12/22/16 15:43 12/22/16 15:49 DC 12/22/16 16:16 4 MG ECG Indication: vomiting Rate (beats per minute): 55 Rhythm: sinus bradycardia Findings: no acute ischemic change, no ectopy Medical Decision CC: Patient presenting with complaint of abdominal pain and vomiting Interpretation of Labs: No leukocytosis, anemia, hyperglycemia, no other significant electrolyte abnormalities, normal creatinine with elevated BUN to creatinine ratio suggestive of dehydration, normal liver enzymes and lipase, normal lactic acid. No UTI. Differential Diagnosis: Includes, but not limited to gastroenteritis, gastritis , peptic ulcer disease, dehydration, electrolyte abnormality, small bowel obstruction, abdominal mass, pneumonia, bronchitis, lung disease, heatstroke, among others. Medication Reconciliation: I attest that I have personally reviewed the patient' s current medication list. Vital signs review: I reviewed the patient's vital signs and interpret them as follows: T: Afebrile; BP: Hypertensive; HR: Within normal limits; RR: Within normal limits; Pulse Ox: Normal limits on room air. Blood pressure screening: The patient was found to have an elevated blood pressure and was referred to their primary doctor for recheck and further treatment. Summary: Patient was evaluated at bedside, history of physical exam performed. Patient is no acute distress, resting quietly in the stretcher and his answers most questions during the exam. Patient is diffusely tender in the abdomen, most tender over the periumbilical and epigastric region. Slight pressure on the abdomen induces vomiting, patient had 800 mL of blue- green emesis, after drinking some blue slushy. He also appears dehydrated on exam. Orders were placed at bedside for labs, UA, IV fluid bolus 2, CT of the chest, abdomen, pelvis to evaluate for malignancy given his recent weight loss, but specifically to rule out small bowel obstruction. Patient discussed with Dr. Farley, who agrees with my assessment and plan. Labs reviewed as above, patient appears to be dehydrated but no other significant abnormalities. EKG reviewed, no acute ischemic changes noted. CT studies reviewed, no acute abnormalities noted. Patient reassessed multiple times throughout ED stay, he reports great improvement after medications and IV fluids, he is now able to tolerate by mouth liquids without vomiting. Patient and were updated on all results and plan for discharge home. A prescription for Zofran ODT was provided for the patient's use. Patient was strongly encouraged to follow closely with his PCP, specifically regarding his elevated blood pressure and hyperglycemia today, as well as his weight loss. Patient was also given return precautions should symptoms worsen, he verbalized understanding. Patient was discharged home in stable condition and ambulatory. Impression Primary Impression: Nausea and vomiting Additional Impression: Dehydration Departure Information Dispostion Home / Self-Care Condition GOOD Prescriptions Ondasetron Odt (ZOFRAN ODT) 4 Mg Tab 4 MG SL Q6H for Nausea for 2 Days, #8 TAB Prov: Barbara Avery CRNP 12/22/16 Referrals Kathy Snider M.D. (PCP) Patient Instructions ED Dehydration, ED Nausea Vomiting, My [facility] Additional Instructions You have been treated in the Emergency Department today for abdominal pain, vomiting, and dehydration. Laboratory and imaging results have ruled out any emergent reasons for further evaluation or admission. Her symptoms may be related to gastroenteritis, which is a viral or bacterial infection that causes the nausea and vomiting. You may develop diarrhea as well. It is ESSENTIAL that you maintain adequate hydration with oral fluids! Some suggestions include: - Water is the IDEAL replacement for lost fluids. You should initially sip at the water to help facilitate increased intestinal absorption rate and to decrease the possibility of nausea/vomiting. - Carbohydrate/Electrolyte-Containing Drinks (i.e. Gatorade, Powerade, Pedialyte). All of these are good choices, but it is important to remember that all of these drinks contain a high concentration of sugar. - Popsicles, ice chips, and fruit juices are all other options. - My FAVORITE dehydration remedy is to mix a 1:1 solution of bottled Gatorade with bottled water. This dilution allows for a palatable flavor with added benefit of a reduction in the amount of sugar consumption. You should eat a bland diet until your feeling back to normal. Examples of this include bread, toast, applesauce, bananas, rice, etc. Avoid spicy foods, dairy, or foods high in fat. As with all Emergency Department visits, you should follow-up with your Primary Care Provider in 2-3 days for reevaluation. Return to the Emergency Department if your current symptoms worsen despite treatment course outlined above, or if you develop any of the following symptoms : Severe worsening abdominal pain, vomiting blood, increased thirst, dizziness, palpitations, confusion, sluggishness, fainting, inability to sweat, or decreased urine output. Problem Qualifiers Primary Impression: Nausea and vomiting Vomiting type: unspecified Vomiting Intractability: unspecified Qualified Codes: R11.2 - Nausea with vomiting, unspecified
--- NOTE | 2016-12-22 17:20 | DIAGNOSTIC IMAGING REPORT ---
ABD/PELVIS IV CONTRAST ONLY CT DOSE: HISTORY: Pain eval SBO, infection, mass TECHNIQUE: Multiaxial CT images of the abdomen and pelvis were performed following the use of intravenous contrast. A dose lowering technique was utilized adhering to the principles of ALARA. COMPARISON STUDY: 01/17/2016 FINDINGS: Lung bases are clear. Mild stable hepatomegaly. Considerable decrease in body fat compared to the prior exam. Kidneys enhance uniformly. Small right renal cyst unchanged. Bowel pattern is again nonobstructive. IMPRESSION: No significant abnormality identified within the abdomen or pelvis. Mild stable hepatomegaly. Interval decrease in body fat content compared to the prior exam. Nonobstructive bowel pattern. The above report was generated using voice recognition software. It may contain grammatical, syntax or spelling errors. Electronically signed by: Raicel Corrales M.D. 12/22/2016 5:19 PM Dictated Date/Time: 12/22/2016 5:14 PM
--- NOTE | 2016-12-22 17:27 | DIAGNOSTIC IMAGING REPORT ---
CT OF THE CHEST WITH IV CONTRAST CLINICAL HISTORY: Chronic cough and weight loss. COMPARISON STUDY: CTA of the chest abdomen pelvis December 07, 2011 and Chest radiograph August 11, 2016. TECHNIQUE: Following IV administration of 120 mL of Optiray-320, helical axial images of the chest were obtained. Sagittal and coronal reconstructions were viewed as well as maximal intensity projections on an independent 3-D workstation. A dose lowering technique was utilized adhering to the principles of ALARA. CT DOSE: 572.83 mGy.cm FINDINGS: No enlarged axillary, mediastinal or hilar lymph nodes are present. The size of the heart is normal. There is no pericardial effusion. There is mild dilatation of the ascending aorta which measures 4.1 cm at the level the main pulmonary artery. There is no evidence of thoracic aortic dissection. The central airways are patent. There is no consolidation to suggest pneumonia. There is mild multifocal mucoid impaction within the right lower lobe bronchi. No pneumothorax or pleural effusion is present. There are no pulmonary nodules. No suspicious osseous lesions are present. The abdomen and pelvis will be reported separately. However, note is made of several small hepatic and right renal cysts. IMPRESSION: 1. No consolidation to suggest pneumonia. Minimal multifocal mucoid impaction within the right lower lobe. 2. No evidence of malignancy within the chest. 3. Mild dilatation of the ascending aorta which measures 4.1 cm. Electronically signed by: Justice Branch M.D. 12/22/2016 5:26 PM Dictated Date/Time: 12/22/2016 5:14 PM
[2016-12-22] MEDS ORDERED: ONDA4TAB10 SL (18:30)
[2016-12-22 19:00] LABS: URINE APPEARANCE CLEAR (CLEAR); URINE BILIRUBIN NEG (NEG); URINE COLOR YELLOW; URINE NITRITE NEG (NEG); URINE SPECIFIC GRAVITY > 1.045 (1.000-1.030); UROBILINOGEN NEG (NEG); ZZUR CULT IF INDIC CLEAN CATCH NO
[2016-12-22 19:07] VITALS: BP 167/92; PULSE 53; O2SAT 95
[2016-12-22 19:18] LABS: MANUAL MICROSCOPIC REQUIRED? NO; REVIEW REQ? NO
== END 2016-12-22 19:06 | disposition home or self-care (01) ==
LOC: C.EDB 15:16 → C.EDA 19:06
DX: R11.2 Nausea with vomiting, unspecified (principal); E86.0 Dehydration; K21.9 Gastro-esophageal reflux disease without esophagitis; Z83.3 Family history of diabetes mellitus; F17.200 Nicotine dependence, unspecified, uncomplicated; F12.90 Cannabis use, unspecified, uncomplicated

== ENCOUNTER 2017-06-01 15:19 | Emergency (ER) | payer OTHER ==
[~2017-06-01] VITALS: Ht 177.8 cm; Wt 71.9 kg
[~2017-06-01 15:19] MED LIST changes: +CALC600T9 PO; +CRAN500C2 PO; +FERGON PO; +KRIL1000 PO; +MULT-513 PO; +PANT40TA2 PO; -PRED20TA PO
[2017-06-01 15:27] VITALS: Ht 177.8 cm; Wt 71.9 kg
[2017-06-01] MEDS ORDERED: SODIUM CHLORIDE 0.9% 1000ML 1,000 ML IV STA (15:40)
[2017-06-01] MEDS ORDERED: ONDANSETRON INJ 2 MG/ML 2 ML VIAL IV STA (15:40)
[2017-06-01] MEDS ORDERED: MoRPHine SULFATE 4 MG/ML 1 ML CARP\\VIAL IV STA (15:40)
[2017-06-01] MEDS ORDERED: HYDR1CAP85 PO (15:47)
[2017-06-01] MEDS ORDERED: ONDA4TAB10 SL ×2 (15:51→19:27)
[2017-06-01] MEDS ORDERED: PROM12.57 PO (15:51)
[2017-06-01] MEDS ORDERED: ONDA4TAB46 PO (15:51)
[2017-06-01] MEDS ORDERED: NAPR-998 PO (15:51)
[2017-06-01 16:10] LABS: BASO % 0.1 %; BASO ABS # 0.02 K/uL (0-0.2); HEMATOCRIT 45.7 % (42-52); HEMOGLOBIN 16.4 g/dL (14.0-18.0); IG# 0.24 K/uL (0.00-0.02); LYMPH % 9.4 %; LYMPH ABS # 1.95 K/uL (1.2-3.4); MEAN CELL VOLUME 83.2 fL (80-100); MEAN CORPUSCULAR HEMOGLOBIN 29.9 pg (25-34); MEAN CORPUSCULAR HGB CONC 35.9 g/dl (32-36); MEAN PLATELET VOLUME 9.5 fL (7.4-10.4); MONO % 4.8 %; NEUT % 84.5 %; PLATELET COUNT 316 K/uL (130-400); RED CELL DISTRIBUTION WIDTH CV 13.3 % (11.5-14.5); WHITE BLOOD COUNT 20.71 K/uL (4.8-10.8)
[2017-06-01] MEDS ORDERED: PROMETHAZINE HCL INJ 25 MG in SODIUM CHLORIDE 0.9% 50ML 50 ML IV STA (16:23)
[2017-06-01 16:25] VITALS: O2SAT 97
[2017-06-01 16:26] LABS: ALBUMIN 4.9 gm/dl (3.4-5.0); ALT/SGPT 51 U/L (12-78); BLOOD UREA NITROGEN 23 mg/dl (7-18); CALCIUM 9.9 mg/dl (8.5-10.1); CARBON DIOXIDE 25 mmol/L (21-32); CREATININE 1.02 mg/dl (0.60-1.40); GLUCOSE 170 mg/dl (70-99); LIPASE 84 U/L (73-393); POTASSIUM 4.2 mmol/L (3.5-5.1); SODIUM 137 mmol/L (136-145)
[2017-06-01 16:32] LABS: ALKALINE PHOSPHATASE 60 U/L (45-117); AST/SGOT 21 U/L (15-37); CKMB < 0.5 ng/ml (0.5-3.6); TOTAL PROTEIN 9.2 gm/dl (6.4-8.2)
--- NOTE | 2017-06-01 17:42 | DIAGNOSTIC IMAGING REPORT ---
GALLBLADDER-ABD LIMITED CLINICAL HISTORY: 52 years-old Male presenting with Emesis, abd pain. TECHNIQUE: Real-time grayscale and limited color Doppler ultrasound imaging of the abdomen limited to the right upper quadrant was performed. COMPARISON: CT from 12/22/2016. FINDINGS: Pancreas: Visualized portions of the pancreatic head and body normal. Liver: Mildly hyperechogenic parenchyma, although the right hemidiaphragm remains visible, likely indicating mild steatosis. The liver measures 17 cm in maximal sagittal dimension. Two anechoic lesions noted within the left hepatic lobe the larger measuring 10 mm in diameter, likely hepatic cysts or hamartomas. Main portal vein patent with normal directional flow. Biliary: No intrahepatic biliary ductal dilatation. Common bile duct measures up to 4 mm in diameter. Gallbladder: Trace sludge may be present. No evidence of gallstones, gallbladder wall thickening, gallbladder distention, or pericholecystic fluid or inflammatory change. Sonographic Sarmiento's sign negative. Right kidney: Normal in appearance. No hydronephrosis. Ascites: None. IMPRESSION: 1. Hepatic steatosis. Correlate with liver enzymes to exclude steatohepatitis as a cause for abdominal pain. 2. No cholelithiasis or biliary duct dilatation. Electronically signed by: Ezequiel Katz M.D. 06/01/2017 5:40 PM Dictated Date/Time: 06/01/2017 5:38 PM
[2017-06-01] MEDS ORDERED: OPTIRAY 320 IV PRN (18:00)
--- NOTE | 2017-06-01 18:03 | EMERGENCY ROOM VISIT NOTE ---
History First contact with patient: 15:33 Chief Complaint: GI ASSESSMENT Stated Complaint: VOMIT & PAIN Nursing Triage Summary: c/o nausea vomitting and diarrhea since this AM. Unable to get temp in triage, patient dry heaving into vomit bag. History of Present Illness The patient is a 52 year old male who presents to the Emergency Room via private vehicle accompanied by female with complaints of "vomiting and abdominal pain". The patient states that he has a history once or twice a year experiencing abdominal pain followed by persistent vomiting. He states that when he woke up this morning was when the vomiting began. This was around 4:30 AM. He has been dry heaving, vomiting continuously throughout the day. He cannot eat or drink fluids. They're associated chills but no fevers. He is seen GI in the past and has had EGDs and colonoscopies without answers. He is unsure why he is experiencing this. He rates the lower abdominal pain as a 5/ 10 currently. Review of Systems A complete 10-point Review of Systems was discussed with the patient, with pertinent positives and negatives listed in the History of Present Illness. All remaining Review of Systems questions can be considered negative unless otherwise specified. Past Medical/Surgical History Medical Problems: (1) bunion surgery (2) GERD (gastroesophageal reflux disease) (3) Hemorrhoid Surgical Problems: (1) H/O colonoscopy (2) H/O hernia repair (3) H/O vasectomy (4) History of esophagogastroduodenoscopy (EGD) (5) S/P herniorrhaphy Family History Diabetes mellitus Heart disease Kidney disease Social History Smoking Status: Current Some Day Smoker Alcohol Use: heavy Drug Use: none, marijuana Marital Status: Housing Status: lives with family Occupation Status: employed Current/Historical Medications Scheduled Calcium Carbonate-Vitamin D (Calcium + D), 1 TAB PO DAILY Cranberry (Vaccinium Macrocarp (Cranberry), 500 MG PO DAILY Hydroxyzine Pamoate (Vistaril), 1 CAP PO UD Krill Oil (Krill Oil), 1 CAP PO DAILY Multivitamins/Minerals (Mvi With Minerals), 1 TAB PO DAILY Ondasetron Odt (Zofran Odt), 4 MG SL Q6H Pantoprazole (Pantoprazole Sodium), 40 MG PO DAILY [Fergon], 1 TAB PO DAILY Scheduled PRN Naproxen Sodium-Diphenhydramin (Aleve Pm 220-25 mg), 1-2 TABS PO QPM PRN for Sleep Ondasetron Odt (Zofran Odt), 1 TAB SL Q6H PRN for Nausea Promethazine (Phenergan ), Unknown Dose PO Q4H PRN for Nausea Physical Exam Vital Signs Date Time Temp Pulse Resp B/P (MAP) Pulse Ox O2 Delivery O2 Flow Rate FiO2 06/01/17 20:12 66 18 189/95 98 06/01/17 18:53 37.1 06/01/17 18:20 67 18 178/73 100 Room Air 06/01/17 16:25 97 Room Air 06/01/17 16:21 63 06/01/17 15:27 68 16 203/95 97 Room Air Physical Exam VITAL SIGNS - Vital signs and nursing notes were reviewed. Stable. Hypertensive. GENERAL -52-year-old male appearing his stated age who is in no acute distress. Communicates well with provider and answers questions appropriately. SKIN - Without rashes. No petechial rashes. HEAD - NC/AT. EYES - Sclera anicteric. EARS - No deformities of external structures noted on gross examination bilaterally. NOSE - Midline and without cyanosis. No epistaxis or purulent drainage noted. MOUTH/OROPHARYNX - Without perioral cyanosis. LUNGS - Chest wall symmetric without accessory muscle use, intercostals retractions, or central cyanosis. Normal vesicular breath sounds CTA B/L. No wheezes, rales, or rhonchi appreciated. CARDIAC - RRR with S1/S2. No murmur, rubs, or gallops appreciated. ABDOMEN - Abdominal contour normal without pulsations or visible masses. BS normoactive all four quadrants. Suprapubic abdominal tenderness noted. No palpable masses, hepatosplenomegaly, or ascites noted. EXTREMITIES - No clubbing or peripheral cyanosis. No pretibial edema present. + 5/5 strength noted in UE/LE bilaterally. NEUROLOGIC - Cranial nerves II through XII grossly intact. Sensory intact to light touch throughout. PSYCH - A&O, and cooperates fully with examiner. Pt is very pleasant and interacts well with examiner. Medical Decision & Procedures ER Provider Diagnostic Interpretation: GALLBLADDER-ABD LIMITED CLINICAL HISTORY: 52 years-old Male presenting with Emesis, abd pain. TECHNIQUE: Real-time grayscale and limited color Doppler ultrasound imaging of the abdomen limited to the right upper quadrant was performed. COMPARISON: CT from 12/22/2016. FINDINGS: Pancreas: Visualized portions of the pancreatic head and body normal. Liver: Mildly hyperechogenic parenchyma, although the right hemidiaphragm remains visible, likely indicating mild steatosis. The liver measures 17 cm in maximal sagittal dimension. Two anechoic lesions noted within the left hepatic lobe the larger measuring 10 mm in diameter, likely hepatic cysts or hamartomas. Main portal vein patent with normal directional flow. Biliary: No intrahepatic biliary ductal dilatation. Common bile duct measures up to 4 mm in diameter. Gallbladder: Trace sludge may be present. No evidence of gallstones, gallbladder wall thickening, gallbladder distention, or pericholecystic fluid or inflammatory change. Sonographic Sarmiento's sign negative. Right kidney: Normal in appearance. No hydronephrosis. Ascites: None. IMPRESSION: 1. Hepatic steatosis. Correlate with liver enzymes to exclude steatohepatitis as a cause for abdominal pain. 2. No cholelithiasis or biliary duct dilatation. Electronically signed by: Ezequiel Katz M.D. 06/01/2017 5:40 PM Dictated Date/Time: 06/01/2017 5:38 PM ABD/PELVIS IV CONTRAST ONLY CLINICAL HISTORY: 52 years-old Male presenting with Emesis, nausea, chills, lower abd pain, hematuria. TECHNIQUE: Multidetector CT of the abdomen and pelvis was performed after the administration of intravenous contrast. IV contrast: 116 mL of Optiray 320. A dose lowering technique was used consistent with the principles of ALARA (as low as reasonably achievable). COMPARISON: 12/22/2016. CT DOSE (mGy.cm): The estimated cumulative dose is 292.89 mGy.cm. FINDINGS: Test Automation Architect topogram: Unremarkable. Lung bases: Lungs and pleural spaces clear. Normal heart size. No pericardial or pleural effusion. Liver: Normal morphology. Density consistent with hepatic steatosis. Well-defined hypodense lesions in the left hepatic lobe likely hepatic cysts or hamartomas, unchanged from prior. Patent hepatic vasculature. Biliary: No intrahepatic or extrahepatic biliary ductal dilatation. Normal gallbladder. Pancreas: Normal. Spleen: Normal. Splenule noted. Adrenal glands: Normal. Kidneys and ureters: Few well-defined hypodensities in the kidneys likely cysts. No nephrolithiasis. No hydronephrosis. Bladder: Normal. Pelvic organs: Mild prostatic enlargement likely secondary to benign prostatic hyperplasia. Bowel: Normal appendix. No bowel obstruction. Peritoneal cavity: No free fluid or intraperitoneal gas. Lymph nodes: No enlarged lymph nodes in the abdomen or pelvis. Vasculature: Aorta and IVC patent and normal in caliber. Abdominal wall: Small fat-containing periumbilical hernia. Musculoskeletal: Normal. IMPRESSION: 1. Mildly enlarged prostate likely secondary to benign prostatic hyperplasia. 2. No acute intra-abdominal pathology. Electronically signed by: Ezequiel Katz M.D. 06/01/2017 6:07 PM Dictated Date/Time: 06/01/2017 6:01 PM CHEST ONE VIEW PORTABLE CLINICAL HISTORY: 52 years-old Male presenting with emesis, persistent nausea, R/O lower pneumonia. TECHNIQUE: Portable semiupright AP view of the chest was obtained. COMPARISON: 08/11/2016. FINDINGS: Mild prominence of the main pulmonary artery suggested. Cardiac silhouette normal in size. Lungs and pleural spaces clear. Osseous structures normal. Upper abdomen normal. IMPRESSION: 1. No acute cardiopulmonary disease. Electronically signed by: Ezequiel Katz M.D. 06/01/2017 7:02 PM Dictated Date/Time: 06/01/2017 7:01 PM Laboratory Results 06/01/17 16:00 Red Blood Count 5.49, Mean Corpuscular Volume 83.2, Mean Corpuscular Hemoglobin 29.9, Mean Corpuscular Hemoglobin Concent 35.9, Mean Platelet Volume 9.5, Neutrophils (%) (Auto) 84.5, Lymphocytes (%) (Auto) 9.4, Monocytes (%) (Auto) 4.8, Eosinophils (%) (Auto) 0.0, Basophils (%) (Auto) 0.1, Neutrophils # (Auto) 17.50, Lymphocytes # (Auto) 1.95, Monocytes # (Auto) 1.00, Eosinophils # (Auto) 0.00, Basophils # (Auto) 0.02 06/01/17 16:00 Test 06/01/17 16:00 06/01/17 17:02 White Blood Count 20.71 K/uL (4.8-10.8) Red Blood Count 5.49 M/uL (4.7-6.1) Hemoglobin 16.4 g/dL (14.0-18.0) Hematocrit 45.7 % (42-52) Mean Corpuscular Volume 83.2 fL (80-100) Mean Corpuscular Hemoglobin 29.9 pg (25-34) Mean Corpuscular Hemoglobin Concent 35.9 g/dl (32-36) Platelet Count 316 K/uL (130-400) Mean Platelet Volume 9.5 fL (7.4-10.4) Neutrophils (%) (Auto) 84.5 % Lymphocytes (%) (Auto) 9.4 % Monocytes (%) (Auto) 4.8 % Eosinophils (%) (Auto) 0.0 % Basophils (%) (Auto) 0.1 % Neutrophils # (Auto) 17.50 K/uL (1.4-6.5) Lymphocytes # (Auto) 1.95 K/uL (1.2-3.4) Monocytes # (Auto) 1.00 K/uL (0.11-0.59) Eosinophils # (Auto) 0.00 K/uL (0-0.5) Basophils # (Auto) 0.02 K/uL (0-0.2) RDW Standard Deviation 40.0 fL (36.4-46.3) RDW Coefficient of Variation 13.3 % (11.5-14.5) Immature Granulocyte % (Auto) 1.2 % Immature Granulocyte # (Auto) 0.24 K/uL (0.00-0.02) Anion Gap 11.0 mmol/L (3-11) Est Creatinine Clear Calc Drug Dose 85.2 ml/min Estimated GFR () 96.8 Estimated GFR (Non- 83.5 BUN/Creatinine Ratio 22.7 (10-20) Calcium Level 9.9 mg/dl (8.5-10.1) Magnesium Level 2.3 mg/dl (1.8-2.4) Total Bilirubin 0.7 mg/dl (0.2-1) Aspartate Amino Transf (AST/SGOT) 21 U/L (15-37) Alanine Aminotransferase (ALT/SGPT) 51 U/L (12-78) Alkaline Phosphatase 60 U/L (45-117) Total Creatine Kinase 35 U/L (39-308) Creatine Kinase MB < 0.5 ng/ml (0.5-3.6) Creatine Kinase MB Ratio (0-3.0) Troponin I < 0.015 ng/ml (0-0.045) Total Protein 9.2 gm/dl (6.4-8.2) Albumin 4.9 gm/dl (3.4-5.0) Globulin 4.3 gm/dl (2.5-4.0) Albumin/Globulin Ratio 1.1 (0.9-2) Lipase 84 U/L (73-393) Urine Color YELLOW Urine Appearance CLEAR (CLEAR) Urine pH 7.5 (4.5-7.5) Urine Specific [place]lap 1.028 (1.000-1.030) Urine Protein 2+ (NEG) Urine Glucose (UA) NEG (NEG) Urine Ketones NEG (NEG) Urine Occult Blood TRACE (NEG) Urine Nitrite NEG (NEG) Urine Bilirubin NEG (NEG) Urine Urobilinogen NEG (NEG) Urine Leukocyte Esterase NEG (NEG) Urine WBC (Auto) 1-5 /hpf (0-5) Urine RBC (Auto) 5-10 /hpf (0-4) Urine Hyaline Casts (Auto) 10-30 /lpf (0-5) Urine Epithelial Cells (Auto) >30 /lpf (0-5) Urine Bacteria (Auto) NEG (NEG) Urine Renal Epithelial Cells /lpf (0-5) Urine Mucus PRESENT (NONE PRSENT) Urine Opiates Screen NEG (NEG) Urine Methadone, Qualitative NEG (NEG) Urine Barbiturates NEG (NEG) Urine Phencyclidine (PCP) Level NEG (NEG) Ur Amphetamine/Methamphetamine NEG (NEG) MDMA (Ecstasy) Screen NEG (NEG) Urine Benzodiazepines Screen NEG (NEG) Urine Cocaine Metabolite NEG (NEG) Urine Marijuana (THC) POS (NEG) Medications Administered Medications (Trade) Dose Ordered Sig/Leah Route Start Time Stop Time Status Last Admin Dose Admin Sodium Chloride 1,000 ml @ 999 mls/hr Q1H1M STAT IV 06/01/17 15:40 06/01/17 16:40 DC 06/01/17 16:08 999 MLS/HR Ondansetron HCl (Zofran Inj) 4 mg NOW STAT IV 06/01/17 15:40 06/01/17 15:42 DC 06/01/17 16:06 4 MG Morphine Sulfate (MoRPHine SULFATE INJ) 4 mg NOW STAT IV 06/01/17 15:40 06/01/17 15:42 DC 06/01/17 16:06 4 MG Promethazine HCl 25 mg/Sodium Chloride 51 ml @ 204 mls/hr NOW STAT IV 06/01/17 16:23 06/01/17 16:37 DC 06/01/17 16:42 204 MLS/HR Ondansetron HCl (ZOFRAN ODT 4MG Home Pack) 1 homepack UD STAT PO 06/01/17 19:28 06/01/17 19:29 DC 06/01/17 20:04 1 HOMEPACK Medical Decision Patient was seen and evaluated as above. He presents to us today with nausea and vomiting. He is well on exam. IV access was initiated, and blood work was performed. Previous visits were reviewed and appears that he has been here for the same in the past. CBC reveals leukocytosis at 20.71. No concerning anemia. Patient's metabolic process reveals BUN elevated at 23, I suspect secondary to dehydration. Glucose high at 170. Urine reveals trace occult blood, red blood cells, hyalin casts, epithelial cells and urine mucus. Urine drug screen positive for marijuana. Gallbladder ultrasound essentially negative as the AST and ALT were normal. CT the abdomen and pelvis no acute process. And the chest x-ray noting acute process. He was educated upon incidental findings. He is a follow-up with his family doctor regarding this. He was given Zofran and then Phenergan for his nausea. I do believe he'll be stable for outpatient management. He was offered inpatient management but did pass his by mouth fluid trial well. He seems much better. He is to follow with a family doctor and potentially GI. He was educated upon management, educated upon worrisome symptoms in which to return, had questions answered at discharge, and was discharged home in good condition. His bedside EKG was also performed and reveals normal sinus rhythm, possible left atrial enlargement and when compared with EKG of 12/22/2016 the T wave is perhaps slightly more elevated in the lateral leads. I do not suspect MD or PE. Case was discussed with the attending physician. He'll be given Zofran ODT for home. In evaluation treatment this patient following differential diagnoses were entertained: MD, PE, acute intra-abdominal process, hyperemesis cannabinoid, acute prostatitis, among others. Impression Primary Impression: Nausea & vomiting Departure Information Dispostion Home / Self-Care Condition GOOD Prescriptions Ondasetron Odt (ZOFRAN ODT) 4 Mg Tab 4 MG SL Q6H for Nausea, #20 TAB Prov: Raphael Silveira PA-C 06/01/17 Referrals Kathy Snider M.D. (PCP) Patient Instructions ED Diet Catie, Ольга [facility] Additional Instructions You have been treated in the Emergency Department your Abdominal Pain and nausea and vomiting. Laboratory results and imaging studies have ruled out any emergent causes for your abdominal pain which would warrant admission or surgery. You have been prescribed Zofran to be used for any nausea or vomiting. Take as prescribed. One tablet every 6 hours underneath the tongue as needed for nausea. For pain control, you can use the following [id number] medicines (if >12 yo): - Regular strength (325mg/tab) Tylenol (acetaminophen) 2 tabs every 4-6 hours as needed. Do not exceed 12 tablets in a 24 hour period. Avoid taking more than 3 grams (3000 mg) of Tylenol per day. This includes any other sources of acetaminophen you may take on a regular basis. - Regular strength (200 mg/tab) Advil (ibuprofen) 1-2 tabs every 4-6 hours as needed. Do not exceed a dose of 3200 mg per day. Drink plenty of water and stay well hydrated. As with any trip to the Emergency Department, you should follow-up with your Primary Care Provider from today's visit. Also please follow with GI. Return to the emergency department if your symptoms persist despite treatment plan outlined above or if the following symptoms occur: increased fevers, chills , worsening nausea/vomiting, blood in your stool or urine.
--- NOTE | 2017-06-01 18:08 | DIAGNOSTIC IMAGING REPORT ---
ABD/PELVIS IV CONTRAST ONLY CLINICAL HISTORY: 52 years-old Male presenting with Emesis, nausea, chills, lower abd pain, hematuria. TECHNIQUE: Multidetector CT of the abdomen and pelvis was performed after the administration of intravenous contrast. IV contrast: 116 mL of Optiray 320. A dose lowering technique was used consistent with the principles of ALARA (as low as reasonably achievable). COMPARISON: 12/22/2016. CT DOSE (mGy.cm): The estimated cumulative dose is 292.89 mGy.cm. FINDINGS: Head Of Ethics And Compliance topogram: Unremarkable. Lung bases: Lungs and pleural spaces clear. Normal heart size. No pericardial or pleural effusion. Liver: Normal morphology. Density consistent with hepatic steatosis. Well-defined hypodense lesions in the left hepatic lobe likely hepatic cysts or hamartomas, unchanged from prior. Patent hepatic vasculature. Biliary: No intrahepatic or extrahepatic biliary ductal dilatation. Normal gallbladder. Pancreas: Normal. Spleen: Normal. Splenule noted. Adrenal glands: Normal. Kidneys and ureters: Few well-defined hypodensities in the kidneys likely cysts. No nephrolithiasis. No hydronephrosis. Bladder: Normal. Pelvic organs: Mild prostatic enlargement likely secondary to benign prostatic hyperplasia. Bowel: Normal appendix. No bowel obstruction. Peritoneal cavity: No free fluid or intraperitoneal gas. Lymph nodes: No enlarged lymph nodes in the abdomen or pelvis. Vasculature: Aorta and IVC patent and normal in caliber. Abdominal wall: Small fat-containing periumbilical hernia. Musculoskeletal: Normal. IMPRESSION: 1. Mildly enlarged prostate likely secondary to benign prostatic hyperplasia. 2. No acute intra-abdominal pathology. Electronically signed by: Ezequiel Katz M.D. 06/01/2017 6:07 PM Dictated Date/Time: 06/01/2017 6:01 PM
[2017-06-01 18:53] VITALS: TEMP 37.1
--- NOTE | 2017-06-01 19:04 | DIAGNOSTIC IMAGING REPORT ---
CHEST ONE VIEW PORTABLE CLINICAL HISTORY: 52 years-old Male presenting with emesis, persistent nausea, R/O lower pneumonia. TECHNIQUE: Portable semiupright AP view of the chest was obtained. COMPARISON: 08/11/2016. FINDINGS: Mild prominence of the main pulmonary artery suggested. Cardiac silhouette normal in size. Lungs and pleural spaces clear. Osseous structures normal. Upper abdomen normal. IMPRESSION: 1. No acute cardiopulmonary disease. Electronically signed by: Ezequiel Katz M.D. 06/01/2017 7:02 PM Dictated Date/Time: 06/01/2017 7:01 PM
[2017-06-01] MEDS ORDERED: ONDANSETRON HOME PACK 4MG OD TAB PO STA (19:28)
[2017-06-01 20:12] VITALS: BP 189/95; PULSE 66; O2SAT 98
== END 2017-06-01 20:12 | disposition home or self-care (01) ==
LOC: C.EDB 15:21 → C.EDC 20:12
DX: R11.2 Nausea with vomiting, unspecified (principal); K21.9 Gastro-esophageal reflux disease without esophagitis; Z83.3 Family history of diabetes mellitus; Z82.49 Family history of ischemic heart disease and other diseases of the circulatory system; F17.200 Nicotine dependence, unspecified, uncomplicated; F12.90 Cannabis use, unspecified, uncomplicated

== ENCOUNTER → 2017-12-30 | Outpatient (CLI) | payer OTHER ==
[~2017-12-30] MED LIST changes: +HYDR1CAP85 PO; +NAPR-998 PO; +ONDA4TAB10 SL; +PROM12.57 PO
[2017-12-30 08:08] LABS: BASO % 0.3 %; BASO ABS # 0.02 K/uL (0-0.2); EOS % 3.2 %; HEMATOCRIT 41.4 % (42-52); HEMOGLOBIN 14.5 g/dL (14.0-18.0); LYMPH % 43.7 %; LYMPH ABS # 2.69 K/uL (1.2-3.4); MEAN CELL VOLUME 84.7 fL (80-100); MEAN CORPUSCULAR HEMOGLOBIN 29.7 pg (25-34); MEAN PLATELET VOLUME 10.2 fL (7.4-10.4); MONO % 7.3 %; MONO ABS # 0.45 K/uL (0.11-0.59); NEUT % 45.5 %; PLATELET COUNT 285 K/uL (130-400); RED CELL DISTRIBUTION WIDTH CV 12.8 % (11.5-14.5); RED CELL DISTRIBUTION WIDTH SD 39.3 fL (36.4-46.3); WHITE BLOOD COUNT 6.16 K/uL (4.8-10.8)
[2017-12-30 08:50] LABS: ALBUMIN 4.7 gm/dl (3.4-5.0); ALKALINE PHOSPHATASE 50 U/L (45-117); ALT/SGPT 39 U/L (12-78); AST/SGOT 23 U/L (15-37); BLOOD UREA NITROGEN 20 mg/dl (7-18); CALCIUM 9.5 mg/dl (8.5-10.1); CARBON DIOXIDE 28 mmol/L (21-32); CHOLESTEROL 197 mg/dl (0-200); CREATININE 1.02 mg/dl (0.60-1.40); GLUCOSE 111 mg/dl (70-99); LDL CHOLESTEROL CALCULATED 139 mg/dl; POTASSIUM 4.1 mmol/L (3.5-5.1); SODIUM 139 mmol/L (136-145); TOTAL PROTEIN 8.3 gm/dl (6.4-8.2)
== END | disposition home or self-care (01) ==
LOC: C.LAB 07:17
PROVIDERS: ATTEND Internal Medicine
DX: Z00.00 Encounter for general adult medical examination without abnormal findings (principal); Z13.220 Encounter for screening for lipoid disorders; Z13.1 Encounter for screening for diabetes mellitus; Z12.5 Encounter for screening for malignant neoplasm of prostate

== ENCOUNTER 2024-08-23 00:55 | Inpatient (IN) ==
--- NOTE | 2024-08-23 01:09 | Emergency Department Note ---
Impression & Plan Abdominal pain, Unintentional weight loss, Elevated troponin, Nausea & vomiting, Infection of right ear ED Provider Note CHIEF COMPLAINT: Nausea and vomiting HISTORY OF PRESENTING ILLNESS: This 59-year-old male patient presents to the emergency department with his for evaluation of nausea and vomiting for the past 2-3 days. He saw his PCP yesterday for unintentional weight loss, nausea, and reflux symptoms. The patient states that he has lost more than 50 pounds in the past year without trying. He did have a previous EGD that showed gastritis. Previously a CT of the abdomen pelvis, chest x-ray, and blood work in May 2024 that was essentially unremarkable. An additional outpatient workup was ordered, but he has not had it fully completed yet. However, today the patient has been unable to keep anything down by mouth and was advised to come to the ER. He has been taking Zofran with improvement initially, but no longer working. He denies any fevers. Denies any URI symptoms. However, the patient was recently treated with Augmentin and Cortisporin drops for otitis media with possible perforated tympanic membrane. The patient's was sick 1-1/2 to 2 weeks ago with vomiting. His [id number] has non-COVID coronavirus right now. The patient's states that the patient has been soaking the bed at night with sweat for a while now. No history of TB. He has been to [facility] in the past. A CT scan of the chest, CRP, HIV, hepatitis C, RPR, colonoscopy, and stool for H. pylori were ordered as an outpatient. Early onset dementia was also considered since his states that he frequently forgets to eat. The patient had blood work performed yesterday. The patient's hepatitis C antibody was negative. HIV was negative. CRP negative. The other testing is not back yet. REVIEW OF SYSTEMS: See HPI for pertinent positives and pertinent negatives. ALLERGIES: Paroxetine, Fluticasone, Hydroxyzine MEDICATIONS: See below PAST MEDICAL HISTORY: See below PHYSICAL EXAM: VITALS: Vitals are noted on the nurse's note and reviewed by myself. GENERAL: The patient appears nauseous and uncomfortable. Non toxic, in no acute distress, non-diaphoretic. SKIN: Capillary refill <2 sec. EYES: PERRLA. EOMI. Conjunctivae without injection, sclerae without icterus. EAR: Right tympanic membrane perforation with yellow purulent discharge. Left tympanic membrane pearly jackson without erythema or effusion. No tragus tenderness. NOSE: Patent without discharge. MOUTH: Mucous membranes moist. Uvula midline. Airway patent. NECK: Supple without nuchal rigidity. HEART: Regular rate and rhythm without murmurs gallops or rubs. LUNGS: Clear to auscultation bilaterally without wheezes, rales or rhonchi. No retractions or accessory muscle use. ABDOMEN: Positive bowel sounds x 4. Normal tympanic percussion. Soft, diffusely tender to palpation with no maximal area of tenderness. No masses or hepatosplenomegaly. Sarmiento sign negative. No CVA tenderness. No guarding, rigidity, or rebound tenderness. No focal RLQ or LLQ tenderness. MUSCULOSKELETAL: No gross musculoskeletal defects. NEURO: Patient was alert and oriented. No focal neurological deficits. DIFFERENTIAL DIAGNOSIS: Differential diagnosis includes hepatitis, pancreatitis, cholecystitis, cholelithiasis, appendicitis, kidney stone, pyelonephritis, UTI, gastritis, gastroenteritis, mesenteric adenitis, obstruction, constipation, hernia, abdominal abscess, perforation, diverticulitis, IBD, ischemic colitis, abdominal aortic aneurysm, testicular torsion, prostatitis, acute intracranial abnormality, malignancy, dementia, or others. ED COURSE AND MEDICAL DECISION MAKING: HISTORY FROM INDEPENDENT HISTORIAN: Additional history obtained from the patient's MEDICATIONS GIVEN: 1 L normal saline solution bolus. Zofran 4 mg IV and Tylenol 1000 mg IV. Phenergan 25 mg IM. Toradol 10 mg IV. Reglan 10 mg IV and Pepcid 20 mg IV. MONITOR: Continuous monitoring analyst: Order was placed for continuous monitoring analyst. Patient was placed on the monitoring analyst and continuous pulse ox. Patient was noted to be in normal sinus rhythm at an initial rate of 64 bpm per my interpretation. EKG: EKG was interpreted by myself as sinus bradycardia at 59 bpm with biatrial enlargement, but no acute ST or T wave changes. Repeat EKG showed normal sinus rhythm at 62 bpm with biatrial enlargement, but no acute ST or T wave changes and no significant change from the previous EKG. INTERPRETATION OF LABS: I interpreted the labs with full lab results as below in the lab section of this note. Laboratory results pertinent to the emergent complaint are discussed in the MDM section below. The patient was advised to follow up with their PCP and/or specialist(s) for further outpatient monitoring and management of any abnormal results. INTERPRETATION OF IMAGING: Imaging studies were interpreted by myself and read by radiology as per the imaging section of this note. The patient was advised to follow up with their PCP and/or specialist(s) for further outpatient management of any non-emergent abnormal findings. CT scan of the head without contrast shows no evidence of acute intracranial abnormality. However, there are chronic microvascular ischemic changes and cerebral atrophy. CT scan of the chest with IV contrast showed no significant acute cardiopulmonary etiology and no obvious etiology for his unexplained weight loss. CT scan of the abdomen pelvis with IV contrast showed a few simple hepatic cysts which are stable. Simple right renal cortical cysts Bosniak type I which are stable. There is diffuse mucosal enhancement involving the small bowel loops predominantly jejunal and proximal ileal loops. Possibility of mild enteritis. EXTERNAL RECORDS REVIEWED: I reviewed the patient's recent outpatient office visit note as summarized above. CHRONIC MEDICAL/SOCIAL CONDITIONS AFFECTING CARE: Unexplained chronic unintentional weight loss CONSULTATIONS: On-call hospitalist MDM SUMMARY: I examined the patient. The patient has had an approximately 50 pound unintentional weight loss in the past year. His PCP started an outpatient workup as above, but the workup has not been completed yet. Over the past 2 days the patient has had nausea and vomiting that is not controlled with Zofran. He has been unable to keep anything down. An IV lock was placed and labs were drawn. White blood cell count elevated at 13.27. Hemoglobin normal at 15.7. Platelet count elevated at 405. Sodium 134, BUN 29, and glucose 132, but CMP otherwise normal. Magnesium normal. Lipase slightly elevated at 83. TSH normal. Initial high-sensitivity troponin elevated at 43.3. Repeat high-sensitivity troponin decreased to 38.1. EKGs x 2 without ischemic changes. This elevation may be secondary to increased cardiac demand from his recent illness and weight loss. Urinalysis with trace proteins, but otherwise normal. Lyme disease screen negative. Respiratory BioFire negative. The patient has been having night sweats as well as weight loss. TB is considered in the differential. Quantiferrin gold test still pending. The patient was unable to give a stool sample while in the emergency department. The patient had recently been treated with Augmentin and Floxin drops for a right tympanic membrane perforation with purulent discharge. The Augmentin was stopped once he started with the nausea and vomiting due to concerns for side effect from the medication. He continued on the eardrops. A culture of the purulent discharge was obtained and is pending. CT scan of the head without contrast shows no evidence of acute intracranial abnormality. However, there are chronic microvascular ischemic changes and cerebral atrophy. CT scan of the chest with IV contrast showed no significant acute cardiopulmonary etiology and no obvious etiology for his unexplained weight loss. CT scan of the abdomen pelvis with IV contrast showed a few simple hepatic cysts which are stable. Simple right renal cortical cysts Bosniak type I which are stable. There is diffuse mucosal enhancement involving the small bowel loops predominantly jejunal and proximal ileal loops. Possibility of mild enteritis. The patient was medicated with multiple medications for pain and nausea as above. However, he continued with nausea and vomiting. Therefore, it is recommended the patient be admitted for further evaluation and treatment. I spoke with the on-call hospitalist who agreed to admit the patient for further management. Please refer to their dictation for further details. The patient's care was transferred in stable condition. DIAGNOSIS: Abdominal pain Nausea and vomiting Unexplained weight loss Elevated troponin Right tympanic membrane perforation and infection Past Med/Surg History Problem List (Updated 08/23/24 @ 20:36 by Conchis Reilly PA-C) Infection of right ear (Acute) Nausea & vomiting (Acute) Elevated troponin (Acute) Unintentional weight loss (Acute) Abdominal pain (Acute) Abdominal pain Gastritis Gastritis and duodenitis Elevated troponin Weight loss, non-intentional Current use of proton pump inhibitor Lumbosacral radiculopathy Ischial bursitis of right side Protrusion of intervertebral disc of lumbosacral region Degenerative spondylolisthesis L4-5 Low back pain radiating to right leg Hypertension Elevated blood pressure reading without diagnosis of hypertension Dupuytren's contracture of left hand Migraines Bleeding hemorrhoids Positive self-administered antigen test for COVID-19 Dyslipidemia Elevated fasting blood sugar Deviated nasal septum Hypertrophy of nasal turbinates Allergic rhinitis caused by mold (Chronic) Allergic rhinitis due to pollen (Chronic) Hypokalemia (Acute) GERD (gastroesophageal reflux disease) (Chronic) Medical History Weight loss, non-intentional reason for scheduled EGD GERD (gastroesophageal reflux disease) Allergic rhinitis Dupuytren contracture History of sciatica sees chiropractor Prediabetes no meds, no diet History of anemia Hypertension Anxiety Acute Lyme disease hx--treated, not current issue Hemorrhoid Surgical History History of tooth extraction History of bunionectomy Status post osteotomy H/O colonoscopy History of esophagogastroduodenoscopy (EGD) H/O vasectomy H/O hernia repair Family History Mother Drug abuse Thyroid malignant neoplasm Diabetes Cancer Hypertension Malignant neoplasm of uterus Grandfather Cancer Father Diabetes Cardiac disorder Kidney stone Kidney disease Myocardial infarction Hypertension Stroke Brother Drug abuse Alcohol abuse Grandfather (Maternal) Stomach cancer Other Brain cancer Heart disease No family history of adverse response to anesthesia Denies family history of Colon cancer Ovarian cancer Prostate cancer Breast cancer Social History Smoking Status: Current every day smoker Tobacco Type: Cigars Age Started Using Tobacco: 58; packs per day: 0; Cigarettes Per Day: smokes cigars when he drinks (rarely), advised on policy; Second Hand Exposure: No; Do You Dip or Chew Tobacco: No (Used in the past); Hx Alcohol Use: Yes Alcohol type: beer Hx Substance Use: Yes Last Used Substance: Days (ago) Last Used Substance Other:: 2017 Preferred Language: Greenlandic Communication Ability: Effective Visual Impairment: No Limitations Hearing Ability: Normal Manager Part Required: No Beliefs That Will Affect Care: None marital status: Current Living Situation: Spouse current occupational status: unemployed Feels Safe at Home: Yes Childhood Exposure to Second-Hand Smoke: Yes Dental Care, Regularly: No Physical Activity Frequency: 1-2 Times per Week Seatbelt Use: sometimes Sunscreen Use: No Assistive Devices: None Allergies Allergies Allergy/AdvReac Type Severity Reaction Status Date / Time paroxetine AdvReac Severe behavior Verified 08/22/24 09:37 changes fluticasone AdvReac Mild change in Verified 08/22/24 09:37 mood/behavior hydroxyzine AdvReac anxiety Verified 08/22/24 09:37 Home Meds Home Medications Medication Instructions Recorded Confirmed multivitamin 1 tab PO QAM 02/20/18 08/23/24 omega 3 350 mg-dha 235 mg-epa 90 1 cap PO QAM 02/20/18 08/23/24 mg-fish oil 597 mg capsule,delay rel ([place]-3) diphenhydramine HCl 25 mg capsule 25 mg PO TID PRN Allergy Symptoms 05/11/21 08/23/24 (Benadryl) calcium 600 mg (as 1 tab PO QAM 11/30/22 08/23/24 carbonate)-vitamin D3 10 mcg (400 unit) tablet (Calcium 600 + D(3)) cranberry fruit 400 mg capsule 400 mg PO QAM 11/30/22 08/23/24 acetaminophen 325 mg tablet 325 mg PO QID PRN Pain 03/28/24 08/23/24 (Tylenol) amlodipine 5 mg tablet 5 mg PO QAM 05/24/24 08/23/24 azelastine 0.05 % eye drops 1 drp ophthalmic (eye) BID PRN 05/24/24 08/22/24 Allergy Symptoms azelastine 137 mcg (0.1 %) nasal 2 spray intranasal DAILY PRN 05/24/24 08/22/24 spray Allergy Symptoms cocoa butter-zinc oxide 76 %-10 % 1 supp AR UD PRN Hemorrhoids 05/24/24 08/23/24 rectal suppository (Calmol-4) fexofenadine 180 mg tablet 180 mg PO UD PRN prior to allergy 05/24/24 08/23/24 shots magnesium 250 mg tablet 250 mg PO QAM 05/24/24 08/23/24 pantoprazole 40 mg tablet,delayed 40 mg PO QAM 05/24/24 08/23/24 release Previous Rx's Medication Instructions Recorded benzonatate 200 mg capsule 200 mg PO TID PRN cough #30 caps 06/04/24 ofloxacin 0.3 % ear drops 10 drp otic (ear) DAILY 7 days #10 08/22/24 mL Results & Data (ED) Vital Signs Vital Signs - 24 hr 08/23/24 00:57 08/23/24 01:04 08/23/24 01:12 Temperature 36.3 C L Temperature Source Temporal Artery Scan Pulse Rate 73 66 66 Pulse Rhythm Regular Pulse Strength Normal Respiratory Rate 16 17 Respiratory Effort / Characteristics Non-Labored Spontaneous Respiratory Depth Normal Respiratory Pattern Regular Blood Pressure 172/100 H 185/102 H Blood Pressure Mean 124 129 Pulse Oximetry 94 97 Oxygen Delivery Method Room Air Room Air Sepsis Recent Fever Within 48 Hours No Sepsis New/Unexplained Change in Mental Status No Sepsis Action Taken by Nursing No Action Required 08/23/24 01:21 08/23/24 01:30 08/23/24 02:00 Temperature Temperature Source Pulse Rate 63 57 L Pulse Rhythm Pulse Strength Respiratory Rate 12 14 Respiratory Effort / Characteristics Respiratory Depth Respiratory Pattern Blood Pressure 185/104 H Blood Pressure Mean 131 Pulse Oximetry 94 97 95 Oxygen Delivery Method Room Air Room Air Room Air Sepsis Recent Fever Within 48 Hours Sepsis New/Unexplained Change in Mental Status Sepsis Action Taken by Nursing 08/23/24 02:30 08/23/24 03:30 08/23/24 04:00 Temperature Temperature Source Pulse Rate 59 L 67 62 Pulse Rhythm Pulse Strength Respiratory Rate 16 14 15 Respiratory Effort / Characteristics Respiratory Depth Respiratory Pattern Blood Pressure 171/98 H 165/88 H 185/97 H Blood Pressure Mean 122 113 114 Pulse Oximetry 96 98 97 Oxygen Delivery Method Room Air Room Air Room Air Sepsis Recent Fever Within 48 Hours Sepsis New/Unexplained Change in Mental Status Sepsis Action Taken by Nursing 08/23/24 04:56 08/23/24 05:03 Temperature Temperature Source Pulse Rate 63 64 Pulse Rhythm Pulse Strength Respiratory Rate 16 Respiratory Effort / Characteristics Respiratory Depth Respiratory Pattern Blood Pressure 161/102 H Blood Pressure Mean 121 Pulse Oximetry 97 Oxygen Delivery Method Room Air Sepsis Recent Fever Within 48 Hours Sepsis New/Unexplained Change in Mental Status Sepsis Action Taken by Nursing Laboratory Data 08/23/24 01:07 08/23/24 01:07 Lab Results 08/23/24 08/23/24 08/23/24 Range/Units 01:07 01:08 02:24 WBC 13.27 H (4.8-10.8) K/ul RBC 4.94 (4.70-6.10) M/uL Hgb 15.7 (14.0-18.0) g/dl Hct 43.7 (42.0-52.0) % MCV 88.5 (80.0-100.0) fL MCH 31.8 (25.0-34.0) pg MCHC 35.9 (32.0-36.0) g/dL RDW Std Deviation 38.9 (36.4-46.3) fL RDW Coeff of Onofre 12.1 (11.5-14.5) % Plt Count 405 H (130-400) K/uL MPV 10.2 (9.4-12.4) fL Immature Gran % (Auto) 0.4 % Neut % (Auto) 80.7 % Lymph % (Auto) 14.2 % [place] % (Auto) 4.3 % Eos % (Auto) 0.2 % Baso % (Auto) 0.2 % Neut # (Auto) 10.72 H (1.40-6.50) K/uL Lymph # (Auto) 1.88 (1.20-3.40) K/uL [place] # (Auto) 0.57 (0.11-0.59) K/uL Eos # (Auto) 0.02 (0.00-0.50) K/uL Baso # (Auto) 0.03 (0.00-0.20) K/uL Immature Gran # (Auto) 0.05 (0.01-0.20) K/uL Sodium 134 L (136-145) mmol/L Potassium 3.6 (3.5-5.1) mmol/L Chloride 97 L (98-107) mmol/L Carbon Dioxide 28 (21-32) mmol/L Anion Gap 9 (3-11) BUN 29 H (6-23) mg/dl Creatinine 0.82 (0.6-1.4) mg/dl Est Cr Clr Drug Dosing 73.2 ml/min eGFR 100.56 BUN/Creatinine Ratio 35.4 H (10-20) Glucose 132 H (70-99(Fasting)) mg/dl Calcium 9.9 (8.6-10.3) mg/dl Magnesium 2.1 (1.7-2.4) mg/dl Total Bilirubin 0.7 (0.2-1.0) mg/dl AST 21 (13-39) U/L ALT 18 (7-52) U/L Alkaline Phosphatase 43 (34-104) U/L Troponin I High Sens 43.3 H (0-20) pg/ml Total Protein 8.2 (6.0-8.3) gm/dl Albumin 4.9 (3.4-5.0) gm/dl Globulin 3.3 (2.5-4.0) gm/dl Albumin/Globulin Ratio 1.5 (0.9-2) Lipase 83 H (11-82) U/L TSH 2.891 (0.300-4.500) uIu/ml Urine Color Yellow Urine Appearance Clear (Clear) Urine pH 6.5 (4.5-7.5) Ur Specific Mclaughlin 1.018 (1.000-1.030) Urine Protein Negative (Negative) Urine Glucose (UA) Negative (Negative) Urine Ketones Trace H (Negative) Urine Blood Negative (Negative) Urine Nitrite Negative (Negative) Urine Bilirubin Negative (Negative) Urine Urobilinogen Negative (Negative) Ur Leukocyte Esterase Negative (Negative) Urine Opiates Screen Neg (Neg) Ur Methadone, Qual Neg (Neg) Urine Fentanyl Screen Neg (Neg) Urine Barbiturates Neg (Neg) Ur Phencyclidine (PCP) Neg (Neg) U Amphetamin/Meth Scrn Neg (Neg) MDMA (Ecstasy) Screen Neg (Neg) U Benzodiazepines Scrn Neg (Neg) Ur Cocaine Metabolite Neg (Neg) U Marijuana (THC) Screen Pos H (Neg) Adenovirus (PCR) Not Detected (NotDetected) B. pertussis DNA (PCR) Not Detected (NotDetected) B.parapertussis DNA PCR Not Detected (NotDetected) Lyme Disease Screen Negative (Negative) C. pneumoniae DNA (PCR) Not Detected (NotDetected) Coronavirus OC43 (PCR) Not Detected (NotDetected) Coronavirus HKU1 (PCR) Not Detected (NotDetected) Coronavirus 229E (PCR) Not Detected (NotDetected) SARS-CoV-2 (PCR) Not Detected (NotDetected) Coronavirus NL63 (PCR) Not Detected (NotDetected) Human Metapneumovir PCR Not Detected (NotDetected) Influenza Type A (PCR) Not Detected (NotDetected) Influenza Type B (PCR) Not Detected (NotDetected) M. pneumoniae (PCR) Not Detected (NotDetected) Parainfluenza 1 (PCR) Not Detected (NotDetected) Parainfluenza 2 (PCR) Not Detected (NotDetected) Parainfluenza 3 (PCR) Not Detected (NotDetected) Parainfluenza 4 (PCR) Not Detected (NotDetected) RSV (PCR) Not Detected (NotDetected) Entero/Rhino (PCR) Not Detected (NotDetected) 08/23/24 Range/Units 03:43 WBC (4.8-10.8) K/ul RBC (4.70-6.10) M/uL Hgb (14.0-18.0) g/dl Hct (42.0-52.0) % MCV (80.0-100.0) fL MCH (25.0-34.0) pg MCHC (32.0-36.0) g/dL RDW Std Deviation (36.4-46.3) fL RDW Coeff of Onofre (11.5-14.5) % Plt Count (130-400) K/uL MPV (9.4-12.4) fL Immature Gran % (Auto) % Neut % (Auto) % Lymph % (Auto) % [place] % (Auto) % Eos % (Auto) % Baso % (Auto) % Neut # (Auto) (1.40-6.50) K/uL Lymph # (Auto) (1.20-3.40) K/uL [place] # (Auto) (0.11-0.59) K/uL Eos # (Auto) (0.00-0.50) K/uL Baso # (Auto) (0.00-0.20) K/uL Immature Gran # (Auto) (0.01-0.20) K/uL Sodium (136-145) mmol/L Potassium (3.5-5.1) mmol/L Chloride (98-107) mmol/L Carbon Dioxide (21-32) mmol/L Anion Gap (3-11) BUN (6-23) mg/dl Creatinine (0.6-1.4) mg/dl Est Cr Clr Drug Dosing ml/min eGFR BUN/Creatinine Ratio (10-20) Glucose (70-99(Fasting)) mg/dl Calcium (8.6-10.3) mg/dl Magnesium (1.7-2.4) mg/dl Total Bilirubin (0.2-1.0) mg/dl AST (13-39) U/L ALT (7-52) U/L Alkaline Phosphatase (34-104) U/L Troponin I High Sens 38.1 H (0-20) pg/ml Total Protein (6.0-8.3) gm/dl Albumin (3.4-5.0) gm/dl Globulin (2.5-4.0) gm/dl Albumin/Globulin Ratio (0.9-2) Lipase (11-82) U/L TSH (0.300-4.500) uIu/ml Urine Color Urine Appearance (Clear) Urine pH (4.5-7.5) Ur Specific [place] (1.000-1.030) Urine Protein (Negative) Urine Glucose (UA) (Negative) Urine Ketones (Negative) Urine Blood (Negative) Urine Nitrite (Negative) Urine Bilirubin (Negative) Urine Urobilinogen (Negative) Ur Leukocyte Esterase (Negative) Urine Opiates Screen (Neg) Ur Methadone, Qual (Neg) Urine Fentanyl Screen (Neg) Urine Barbiturates (Neg) Ur Phencyclidine (PCP) (Neg) U Amphetamin/Meth Scrn (Neg) MDMA (Ecstasy) Screen (Neg) U Benzodiazepines Scrn (Neg) Ur Cocaine Metabolite (Neg) U Marijuana (THC) Screen (Neg) Adenovirus (PCR) (NotDetected) B. pertussis DNA (PCR) (NotDetected) B.parapertussis DNA PCR (NotDetected) Lyme Disease Screen (Negative) C. pneumoniae DNA (PCR) (NotDetected) Coronavirus OC43 (PCR) (NotDetected) Coronavirus HKU1 (PCR) (NotDetected) Coronavirus 229E (PCR) (NotDetected) SARS-CoV-2 (PCR) (NotDetected) Coronavirus NL63 (PCR) (NotDetected) Human Metapneumovir PCR (NotDetected) Influenza Type A (PCR) (NotDetected) Influenza Type B (PCR) (NotDetected) M. pneumoniae (PCR) (NotDetected) Parainfluenza 1 (PCR) (NotDetected) Parainfluenza 2 (PCR) (NotDetected) Parainfluenza 3 (PCR) (NotDetected) Parainfluenza 4 (PCR) (NotDetected) RSV (PCR) (NotDetected) Entero/Rhino (PCR) (NotDetected) Administered Medications Amlodipine Besylate (Amlodipine Besylate 5 Mg Tab) 5 mg PO QAM PRIMITIVO Stop: 09/22/24 08:59 Last Admin: 08/23/24 10:01 Dose: 5 mg Documented By: PRIYA Lactated Ringer's (Lr) 1,000 mls @ 80 mls/hr IV .[id number] PRIMITIVO Stop: 08/24/24 05:44 Last Admin: 08/23/24 17:39 Dose: 80 mls/hr Documented By: Infusion: 08/23/24 17:39 Dose: Infused Documented By: Admin: 08/23/24 06:20 Dose: 80 mls/hr Documented By: IHSAN Ofloxacin (Ofloxacin 0.3% 75 Drops/5 Ml Btl) 10 drops OT DAILY [facility] Stop: 09/02/24 08:59 Last Admin: 08/23/24 10:01 Dose: 10 drops Documented By: PRIYA Ondansetron HCl (Ondansetron Inj 2 Mg/Ml 2 Ml Vial) 4 mg IV Q6H PRN PRN Reason: Nausea Stop: 09/22/24 08:20 Last Admin: 08/23/24 17:39 Dose: 4 mg Documented By: Admin: 08/23/24 10:02 Dose: 4 mg Documented By: PRIYA Pantoprazole Sodium (Pantoprazole 40 Mg Tab) 40 mg PO QAM PRIMITIVO Stop: 09/22/24 08:59 Last Admin: 08/23/24 10:01 Dose: 40 mg Documented By: PRIYA Discontinued Medications Sodium Chloride (Nss) 1,000 mls @ 999 mls/hr IV .[id number] ONE Stop: 08/23/24 02:21 Last Infusion: 08/23/24 02:46 Dose: Infused Documented By: Admin: 08/23/24 01:34 Dose: 999 mls/hr Documented By: IHSAN Acetaminophen (Ofirmev) 1,000 mg in 100 mls @ 400 mls/hr IV NOW STA Stop: 08/23/24 01:35 Last Infusion: 08/23/24 02:00 Dose: Infused Documented By: Admin: 08/23/24 01:34 Dose: 400 mls/hr Documented By: IHSAN Famotidine (Pepcid 20mg Iv Push) 20 mg in 5 mls @ 2.5 mls/min IV NOW STA Stop: 08/23/24 04:35 Last Admin: 08/23/24 04:58 Dose: 2.5 mls/min Documented By: IHSAN Ioversol (Optiray 320 100ml) 100 ml IV ONCE ONE Stop: 08/23/24 02:11 Last Admin: 08/23/24 02:10 Dose: 93 ml Documented By: KRISTYN Ketorolac Tromethamine (Ketorolac Tromethamine 15 Mg/Ml Vial) 10 mg IV NOW ONE Stop: 08/23/24 03:21 Last Admin: 08/23/24 03:37 Dose: 10 mg Documented By: IHSAN Metoclopramide HCl (Metoclopramide Hcl Inj 5 Mg/Ml 2 Ml Vial) 10 mg IV NOW STA Stop: 08/23/24 04:33 Last Admin: 08/23/24 04:58 Dose: 10 mg Documented By: IHSAN Ondansetron HCl (Ondansetron Inj 2 Mg/Ml 2 Ml Vial) 4 mg IV NOW STA Stop: 08/23/24 01:22 Last Admin: 08/23/24 01:34 Dose: 4 mg Documented By: IHSAN Promethazine HCl (Promethazine Hcl Inj 25 Mg/Ml 1 Ml Vial) 25 mg IM NOW STA Stop: 08/23/24 03:21 Last Admin: 08/23/24 03:37 Dose: 25 mg Documented By: IHSAN Discharge Plan Visit Data Chief Complaint: Vomiting Stated Complaint: VOMITING,NAUSEA ED Provider: Bri Shaikh ED Midlevel Provider: Conchis Reilly Discharge Problem: Abdominal pain, Unintentional weight loss, Elevated troponin, Nausea & vomiting, Infection of right ear Patient Disposition: Admitted As Inpatient Condition: Good Discharge Instructions Interventions: ED Discharge Assessment Last Done: 08/23/24 17:27 Discharge Problem: Abdominal pain Qualifiers: Abdominal location: generalized Qualified Code(s): R10.84 - Generalized abdominal pain Nausea & vomiting Qualifiers: Vomiting type: unspecified Qualified Code(s): R11.2 - Nausea with vomiting, unspecified
[2024-08-23] MEDS: ONDANSETRON INJ 2 MG/ML 2 ML VIAL IV STA (01:34)
[2024-08-23] MEDS: ACETAMINOPHEN 1,000 MG/100 ML VIAL IV STA (01:34)
[2024-08-23] MEDS: SODIUM CHLORIDE 0.9% 1,000 ML IV ONE (01:34)
[2024-08-23 01:54] LABS: Basophils # (auto) 0.03 K/uL (0.00-0.20); Basophils % (auto) 0.2 %; Eosinophils # (auto) 0.02 K/uL (0.00-0.50); Eosinophils % (auto) 0.2 %; Hematocrit (blood only) 43.7 % (42.0-52.0); Hemoglobin 15.7 g/dl (14.0-18.0); Immature Granulocytes # (auto) 0.05 K/uL (0.01-0.20); Immature Granulocytes % (auto) 0.4 %; Lymphocytes # (auto) 1.88 K/uL (1.20-3.40); Lymphocytes % (auto) 14.2 %; Mean Corpuscular Hemoglobin 31.8 pg (25.0-34.0); Mean Corpuscular Hgb Conc 35.9 g/dL (32.0-36.0); Mean Corpuscular Volume 88.5 fL (80.0-100.0); Mean Platelet Volume 10.2 fL (9.4-12.4); Monocytes # (auto) 0.57 K/uL (0.11-0.59); Monocytes % (auto) 4.3 %; Neutrophils # (auto) 10.72 K/uL (1.40-6.50); Neutrophils % (auto) 80.7 %; Platelet Count 405 K/uL (130-400); RDW Coefficient of Variation 12.1 % (11.5-14.5); RDW Standard Deviation 38.9 fL (36.4-46.3); Red Blood Count 4.94 M/uL (4.70-6.10); White Blood Count 13.27 K/ul (4.8-10.8)
[2024-08-23 02:07] LABS: Albumin Globulin Ratio 1.5 (0.9-2); Albumin Level 4.9 gm/dl (3.4-5.0); BUN Creatinine Ratio 35.4 (10-20); Bilirubin,Total 0.7 mg/dl (0.2-1.0); Calcium 9.9 mg/dl (8.6-10.3); Creatinine Clr Calc Pharmacy 73.2 ml/min; Globulin 3.3 gm/dl (2.5-4.0); Magnesium 2.1 mg/dl (1.7-2.4); Potassium 3.6 mmol/L (3.5-5.1); Total Protein 8.2 gm/dl (6.0-8.3)
[2024-08-23] MEDS: OPTIRAY 320 100ml IV ONE (02:10)
[2024-08-23 02:13] LABS: Troponin I High Sensitivity 43.3 pg/ml (0-20)
[2024-08-23 02:22] LABS: Thyroid Stimulating Hormone 2.891 uIu/ml (0.300-4.500)
[2024-08-23 02:32] LABS: Adenovirus PCR Not Detected (NotDetected); Bordetella parapertussis PCR Not Detected (NotDetected); Bordetella pertussis PCR Not Detected (NotDetected); Chlamydia pneumoniae PCR Not Detected (NotDetected); Coronavirus 229E PCR Not Detected (NotDetected); Coronavirus CoV-2 (COVID19)PCR Not Detected (NotDetected); Coronavirus HKU1 PCR Not Detected (NotDetected); Coronavirus NL63 PCR Not Detected (NotDetected); Coronavirus OC43PCR Not Detected (NotDetected); Human Metapneumovirus PCR Not Detected (NotDetected); Influenza A PCR Not Detected (NotDetected); Influenza B PCR Not Detected (NotDetected); Mycoplasma pneumoniae PCR Not Detected (NotDetected); Parainfluenza Virus 1 PCR Not Detected (NotDetected); Parainfluenza Virus 2 PCR Not Detected (NotDetected); Parainfluenza Virus 3 PCR Not Detected (NotDetected); Parainfluenza Virus 4 PCR Not Detected (NotDetected); Respiratory Syncytial VirusPCR Not Detected (NotDetected); Rhinovirus/Enterovirus PCR Not Detected (NotDetected)
[2024-08-23 02:38] LABS: Appearance Urine Clear (Clear); Bilirubin Urine Negative (Negative); Blood Urine Negative (Negative); Color Urine Yellow; Glucose Urine UA Negative (Negative); Ketones Urine Trace (Negative); Leukocyte Esterase Urine Negative (Negative); Nitrite Urine Negative (Negative); Protein Urine Negative (Negative); Specific Gravity Urine 1.018 (1.000-1.030); Urobilinogen Urine Negative (Negative); pH Urine 6.5 (4.5-7.5)
--- NOTE | 2024-08-23 03:08 | CT Scan Report ---
EXAM: CT head/brain wo con CLINICAL HISTORY: weight loss, vomiting TECHNIQUE: Multiple axial images are obtained from the skull base to the vertex without contrast. CT scan was performed according to ALARA (as low as reasonable achievable). 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 No evidence of space occupying lesion, hemorrhage, edema, mass effect, midline shift, extra axial collection, or hydrocephalus is noted. Basal cisterns are symmetric and normal in size and configuration. There are scattered periventricular hypodensities as can be seen with chronic microvascular ischemic changes. The jackson-white matter differentiation is preserved. Visualized paranasal sinuses and mastoid air cells are well aerated. Orbital contents are within normal limits. Bony structures are intact. IMPRESSION: 1. No evidence of acute intracranial abnormality is demonstrated. 2. Chronic microvascular ischemic changes. 3. Cerebral atrophy. No other new interval abnormality since prior study. Electronically signed by Daryl Byrne 08-23-2024 03:08 AM
--- NOTE | 2024-08-23 03:15 | CT Scan Report ---
EXAM: CT chest diagnostic w con CLINICAL HISTORY: unintentional weight loss, vomiting TECHNIQUE: Contiguous axial images were obtained from the neck base through the upper abdomen without contrast. In addition, sagittal and coronal reconstructions were performed to potentially increase the sensitivity for the detection of disease. CT scan was performed according to ALARA (as low as reasonable achievable). 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 FINDINGS: The lungs are clear, with no focal areas of consolidation. No pulmonary nodules are seen. The central airways are patent. There are no pleural effusions. No pneumothorax is seen. Evaluation of the mediastinum and allie is limited due to the lack of intravenous contrast. No axillary or mediastinal adenopathy is identified. The thyroid is unremarkable. The heart, aorta, and pulmonary arteries are of normal size and configuration. There are no appreciable coronary artery and aortic atherosclerotic calcifications. No pericardial effusion is identified. No aggressive appearing osseous lesions are identified. IMPRESSION: 1. No significant abnormality detected No other new interval abnormality since prior study. Electronically signed by Daryl Byrne 08-23-2024 03:15 AM
--- NOTE | 2024-08-23 03:27 | CT Scan Report ---
EXAM: CT abd pelvis IV con only CLINICAL HISTORY: abdominal pain, weight loss, N/V TECHNIQUE: Contiguous axial images were obtained from the level of the diaphragm to the pubic symphysis with intravenous contrast. Coronal and sagittal reconstructions were likewise performed and indicated to increase the sensitivity for detecting clinically relevant pathology. If IV contrast material had not been administered, the likelihood of detecting abnormalities relevant to the patient's condition would have been substantially decreased. CT scan was performed according to ALARA (as low as reasonable achievable). COMPARISON: 07:33:00 COMPUTER ARTIST FINDINGS: The visualized lung bases are clear. The liver is normal in size and attenuation. Few tiny hypodense lesions are noted in the left lobe- appear simple cyst. There is no intra or extrahepatic biliary ductal dilatation. Hepatic vasculature is patent. The gallbladder is present. The spleen, pancreas, and adrenal glands are unremarkable. The kidneys are normal in size and attenuation. There is no hydronephrosis or perinephric fat stranding. No renal calculi or renal masses are identified. Simple cortical cyst of size 2 mm is noted involving the right kidney. The ureters are normal in caliber and no ureteral calculi are seen. The bladder is normal in contour. Pelvic viscera are unremarkable. Diffuse mucosal enhancement are noted involving small bowel loop predominantly jejunal and proximal ileal loops- possibility of mild enteritis changes Abdominal and pelvic vasculature is patent. No adenopathy or fluid collections are seen. No aggressive appearing osseous lesions are identified. IMPRESSION: 1. Few simple hepatic cyst.-stable. 2. 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 3. Diffuse mucosal enhancement are noted involving small bowel loop predominantly jejunal and proximal ileal loops- possibility of mild enteritis changes- clinical correlation suggested.- appears more prominent at as compared to prior study. Electronically signed by Daryl Byrne 08-23-2024 03:26 AM
[2024-08-23] MEDS: KETOROLAC TROMETHAMINE 15 MG/ML VIAL IV ONE (03:37)
[2024-08-23] MEDS: PROMETHAZINE HCL INJ 25 MG/ML 1 ML VIAL IM STA (03:37)
--- NOTE | 2024-08-23 04:52 | History & Physical Report ---
Date of Service August 23, 2024 Assessment & Plan (1) Vomiting: (2) Elevated troponin: Plan 59-year-old male PMHx GERD, allergic rhinitis, dyslipidemia, migraines, and HTN presenting for N/V x 2 to 3 days. ED evaluation reveals leukocytosis 16.27, platelets 405; sodium 134, chloride 97, BUN 29, BUN/creatinine ratio 35.4, glucose 132, troponin 43.3 and then on repeat 38.1; LFTs WNL; lipase 83; TSH 2.891; UA negative for infection; BioFire negative; TB test pending; CTAP reveals diffuse mucosal enhancement involving small bowel loop predominantly jejunal and proximal ileal loops possibility of mild enteritis changes, with stable hepatic and renal cyst; chest CT without acute findings; head CT without acute findings but does reveal chronic changes; EKG sinus bradycardia with sinus arrhythmia and biatrial enlargement at 59 bpm initially, repeat EKG normal sinus rhythm with biatrial enlargement 62 bpm. Was provided with 1L NSS, promethazine 25 IM, ondansetron 4 mgs IV, metoclopramide 10 mg IV, ketorolac 10 mg IV, famotidine 20 mgs IV, acetaminophen 1 g IV in ED. #Vomiting 2-3 days N/V, associated 50lb weight loss over past year and night sweats. Being evaluated by PCP and found to have gastritis; testing included CRP, HIV, Hep C, RPR, colonoscopy, and H.pylori (stool) and results still pending. Has been on Augmentin for a few days for an R ear infection and initially symptoms thought to be secondary to antibiotic related adverse effects. However given ongoing nausea and vomiting as well as patient's body habitus, PCP was concerned for dehydration and referred patient to ED. Of note, patient did have recent travel to [facility] (Former[facility] No history of C. difficile. ? early dementia and forgetfulness specifically forgetting when to eat, may be contributing to weight loss portion. Given weight loss and night sweats, ED initiated TB workup. - CBC leukocytosis 13.27, CMP sodium 134, BUN 29, ratio 35.4, chloride 97; lipase 83 - CBC a.m. - CTAP diffuse mucosal enhancement involving the small bowel loop predominantly jejunal/proximal ileal bowel loops possibility of enteritis changes - Full liquid diet; advance as patient tolerates - IVF with LR @ 80 mL/hr - Zofran prn N/V, ketorolac prn pain - Pending stool studies - Pending TB studies - Consider GI consult as appropriate- none placed at time of admission #Elevated troponin Pt w/ occasional chest pressure per patient's , no current chest pain - Troponin 43.3 and then repeat 38.1 - EKG on 2 separate occasions revealed sinus rhythm without ischemic changes- EKG as needed chest pain - Likely 2/2 demand #R ear infection Being treated for R ear infection/?perforation. Prescribed drops (Floxin) and Augmentin. Is to follow with [facility] outpatient. - Augmentin d/c'd at 08/22/2024 visit - Continue drops #GERD- Pantoprazole #HTN- Amlodipine Dispo: Admit, med/sx VTE Prophylaxis: SCDs This document was dictated utilizing Memvu. Please excuse any grammatical errors that may be secondary to use of this software. Admission and Anticipated Discharge Date Admission Date: 08/23/2024 History of Present Illness Chief Complaint: N/V Primary Care Provider: Elmo Hart MD 59-year-old male PMHx GERD, allergic rhinitis, dyslipidemia, migraines, and HTN presenting for N/V x 2 to 3 days. Patient was seen by his PCP the day [facility] for unintentional weight loss associated with nausea and reflux symptoms. Patient states he has been unable to keep anything down by mouth which is why he came to the ED as recommended by PCP. helps to provide a history. States that there has been an ongoing issue of weight loss with approximately 50 pound weight loss over the past year as well as recurrent nausea and vomiting. However 2 days [employer] [facility], around 0500 patient had sudden onset of N/V and then felt "under the weather" for the rest of the day. The day [facility] [facility] the patinet was seen by PCP and overall feeling better but that evening around 2200, he had another sudden onset of N/V. Pt has been having night sweats when sick and the past two nights [facility] [facility] has had night sweats but the patient has not taken his temperature. States he just feels "off". Currently denying chest pain, shortness of breath, palpitations, D/C, numbness/tingling, LUTS, weakness, or lightheadedness. Sick contacts include who had N/V approximately 2 weeks ago. Of note, patient has traveled to [facility] ([facility] ED evaluation reveals leukocytosis 16.27, platelets 405; sodium 134, chloride 97, BUN 29, BUN/creatinine ratio 35.4, glucose 132, troponin 43.3 and then on repeat 38.1; LFTs WNL; lipase 83; TSH 2.891; UA negative for infection; BioFire negative; TB test pending; CTAP reveals diffuse mucosal enhancement involving small bowel loop predominantly jejunal and proximal ileal loops possibility of mild enteritis changes, with stable hepatic and renal cyst; chest CT without acute findings; head CT without acute findings but does reveal chronic changes; EKG sinus bradycardia with sinus arrhythmia and biatrial enlargement at 59 bpm initially, repeat EKG normal sinus rhythm with biatrial enlargement 62 bpm. Was provided with 1L NSS, promethazine 25 IM, ondansetron 4 mgs IV, metoclopramide 10 mg IV, ketorolac 10 mg IV, famotidine 20 mgs IV, acetaminophen 1 g IV in ED. Please see Dr. Westbrook's attestation for adjustments/additions to treatment plan. Allergies Allergy/AdvReac Type Severity Reaction Status Date / Time paroxetine AdvReac Severe behavior Verified 08/22/24 09:37 changes fluticasone AdvReac Mild change in Verified 08/22/24 09:37 mood/behavior hydroxyzine AdvReac anxiety Verified 08/22/24 09:37 Home Medications Medication Instructions Recorded Confirmed Type multivitamin 1 tab PO QAM 02/20/18 08/23/24 History omega 3 350 mg-dha 235 mg-epa 90 1 cap PO QAM 02/20/18 08/23/24 History mg-fish oil 597 mg capsule,delay rel ([place]-3) diphenhydramine HCl 25 mg capsule 25 mg PO TID PRN Allergy Symptoms 05/11/21 08/23/24 History (Benadryl) calcium 600 mg (as 1 tab PO QAM 11/30/22 08/23/24 History carbonate)-vitamin D3 10 mcg (400 unit) tablet (Calcium 600 + D(3)) cranberry fruit 400 mg capsule 400 mg PO QAM 11/30/22 08/23/24 History acetaminophen 325 mg tablet 325 mg PO QID PRN Pain 03/28/24 08/23/24 History (Tylenol) amlodipine 5 mg tablet 5 mg PO QAM 05/24/24 08/23/24 History azelastine 0.05 % eye drops 1 drp ophthalmic (eye) BID PRN 05/24/24 08/22/24 History Allergy Symptoms azelastine 137 mcg (0.1 %) nasal 2 spray intranasal DAILY PRN 05/24/24 08/22/24 History spray Allergy Symptoms cocoa butter-zinc oxide 76 %-10 % 1 supp NH UD PRN Hemorrhoids 05/24/24 08/23/24 History rectal suppository ([place]-4) fexofenadine 180 mg tablet 180 mg PO UD PRN prior to allergy 05/24/24 08/23/24 History shots magnesium 250 mg tablet 250 mg PO QAM 05/24/24 08/23/24 History pantoprazole 40 mg tablet,delayed 40 mg PO QAM 05/24/24 08/23/24 History release benzonatate 200 mg capsule 200 mg PO TID PRN cough #30 caps 06/04/24 08/23/24 Rx ofloxacin 0.3 % ear drops 10 drp otic (ear) DAILY 7 days #10 08/22/24 08/23/24 Rx mL Past Med/Surg History Problem List (Updated 08/23/24 @ 05:41 by Racheal Moon PA-C) Elevated troponin Weight loss, non-intentional Current use of proton pump inhibitor Lumbosacral radiculopathy Ischial bursitis of right side Protrusion of intervertebral disc of lumbosacral region Degenerative spondylolisthesis L4-5 Low back pain radiating to right leg Hypertension Elevated blood pressure reading without diagnosis of hypertension Dupuytren's contracture of left hand Migraines Bleeding hemorrhoids Positive self-administered antigen test for COVID-19 Dyslipidemia Elevated fasting blood sugar Deviated nasal septum Hypertrophy of nasal turbinates Allergic rhinitis caused by mold (Chronic) Allergic rhinitis due to pollen (Chronic) Hypokalemia (Acute) GERD (gastroesophageal reflux disease) (Chronic) Medical History Weight loss, non-intentional reason for scheduled EGD GERD (gastroesophageal reflux disease) Allergic rhinitis Dupuytren contracture History of sciatica sees chiropractor Prediabetes no meds, no diet History of anemia Hypertension Anxiety Acute Lyme disease hx--treated, not current issue Hemorrhoid Surgical History History of tooth extraction History of bunionectomy Status post osteotomy H/O colonoscopy History of esophagogastroduodenoscopy (EGD) H/O vasectomy H/O hernia repair Family History Mother Drug abuse Thyroid malignant neoplasm Diabetes Cancer Hypertension Malignant neoplasm of uterus Grandfather Cancer Father Diabetes Cardiac disorder Kidney stone Kidney disease Myocardial infarction Hypertension Stroke Brother Drug abuse Alcohol abuse Grandfather (Maternal) Stomach cancer Other Brain cancer Heart disease No family history of adverse response to anesthesia Denies family history of Colon cancer Ovarian cancer Prostate cancer Breast cancer Social History Smoking Status: Current every day smoker Tobacco Type: Cigarettes Age Started Using Tobacco: 58; packs per day: 0; Cigarettes Per Day: smokes cigars when he drinks (rarely), advised on policy; Second Hand Exposure: No; Do You Dip or Chew Tobacco: No (Used in the past); Hx Alcohol Use: Yes (very rare) Alcohol type: beer Hx Substance Use: Yes (medical marijuana (advised on policy)) Last Used Substance Other:: 2017 Preferred Language: Tam[place] Communication Ability: Effective Visual Impairment: No Limitations Hearing Ability: Normal Search Director Required: No Beliefs That Will Affect Care: None marital status: Current Living Situation: Spouse current occupational status: unemployed Feels Safe at Home: Yes Childhood Exposure to Second-Hand Smoke: Yes Dental Care, Regularly: No Physical Activity Frequency: 1-2 Times per Week Seatbelt Use: sometimes Sunscreen Use: No Assistive Devices: None Review of Systems Review of Systems: All systems reviewed & are unremarkable except as noted in Subjective Physical Exam Physical Exam: General: No acute distress, thin Skin: Warm and dry Head: Normocephalic, atraumatic Eyes: PERRL, conjunctivae clear, sclera non-icteric ENT: External ear and ear canal without swelling; nose atraumatic; good dentition, tongue normal appearance, pharynx normal Neck: Supple, no LAD Cardio: RRR, no M/G/R, S1 and S2 normal Resp: No respiratory distress, Lungs CTA in all lobes bilaterally, no wheezes, rales, or rhonchi Abdomen: Soft, symmetric, tenderness to palpation of abdomen throughout; no guarding; No masses or hepatosplenomegaly; Bowel sounds normoactive MSK: No deformities; pulses palpable and equal; no edema. Neuro: Awake, alert; Sensation intact bilaterally; CN grossly intact Psych: Limited interactions. Alert and oriented. present in room at time of visit. Results & Data Results & Data Vital Signs (Past 12 Hours) Vital Signs Temp Pulse Resp BP Pulse Ox O2 Del Method 08/23/24 04:00 62 15 185/97 H 97 Room Air 08/23/24 03:30 67 14 165/88 H 98 Room Air 08/23/24 02:30 59 L 16 171/98 H 96 Room Air 08/23/24 02:00 57 L 14 185/104 H 95 Room Air 08/23/24 01:30 63 12 97 Room Air 08/23/24 01:21 94 Room Air 08/23/24 01:12 66 17 185/102 H 97 Room Air 08/23/24 01:04 66 08/23/24 00:57 36.3 C L 73 16 172/100 H 94 Room Air Laboratory Results 08/23/24 08/23/24 08/23/24 03:43 02:24 01:08 WBC RBC Hgb Hct MCV MCH MCHC RDW Std Deviation RDW Coeff of Onofre Plt Count MPV Immature Gran % (Auto) Neut % (Auto) Lymph % (Auto) Haakon % (Auto) Eos % (Auto) Baso % (Auto) Neut # (Auto) Lymph # (Auto) Haakon # (Auto) Eos # (Auto) Baso # (Auto) Immature Gran # (Auto) Sodium Potassium Chloride Carbon Dioxide Anion Gap BUN Creatinine Est Cr Clr Drug Dosing eGFR BUN/Creatinine Ratio Glucose Calcium Magnesium Total Bilirubin AST ALT Alkaline Phosphatase Troponin I High Sens 38.1 H Total Protein Albumin Globulin Albumin/Globulin Ratio Lipase TSH Urine Color Yellow Urine Appearance Clear Urine pH 6.5 Ur Specific [place] 1.018 Urine Protein Negative Urine Glucose (UA) Negative Urine Ketones Trace H Urine Blood Negative Urine Nitrite Negative Urine Bilirubin Negative Urine Urobilinogen Negative Ur Leukocyte Esterase Negative Adenovirus (PCR) Not Detected B. pertussis DNA (PCR) Not Detected B.parapertussis DNA PCR Not Detected Lyme Disease Screen C. pneumoniae DNA (PCR) Not Detected Coronavirus OC43 (PCR) Not Detected Coronavirus HKU1 (PCR) Not Detected Coronavirus 229E (PCR) Not Detected SARS-CoV-2 (PCR) Not Detected Coronavirus NL63 (PCR) Not Detected Human Metapneumovir PCR Not Detected Influenza Type A (PCR) Not Detected Influenza Type B (PCR) Not Detected M. pneumoniae (PCR) Not Detected Parainfluenza 1 (PCR) Not Detected Parainfluenza 2 (PCR) Not Detected Parainfluenza 3 (PCR) Not Detected Parainfluenza 4 (PCR) Not Detected RSV (PCR) Not Detected Entero/Rhino (PCR) Not Detected 08/23/24 01:07 WBC 13.27 H RBC 4.94 Hgb 15.7 Hct 43.7 MCV 88.5 MCH 31.8 MCHC 35.9 RDW Std Deviation 38.9 RDW Coeff of Onofre 12.1 Plt Count 405 H MPV 10.2 Immature Gran % (Auto) 0.4 Neut % (Auto) 80.7 Lymph % (Auto) 14.2 Haakon % (Auto) 4.3 Eos % (Auto) 0.2 Baso % (Auto) 0.2 Neut # (Auto) 10.72 H Lymph # (Auto) 1.88 Haakon # (Auto) 0.57 Eos # (Auto) 0.02 Baso # (Auto) 0.03 Immature Gran # (Auto) 0.05 Sodium 134 L Potassium 3.6 Chloride 97 L Carbon Dioxide 28 Anion Gap 9 BUN 29 H Creatinine 0.82 Est Cr Clr Drug Dosing 73.2 eGFR 100.56 BUN/Creatinine Ratio 35.4 H Glucose 132 H Calcium 9.9 Magnesium 2.1 Total Bilirubin 0.7 AST 21 ALT 18 Alkaline Phosphatase 43 Troponin I High Sens 43.3 H Total Protein 8.2 Albumin 4.9 Globulin 3.3 Albumin/Globulin Ratio 1.5 Lipase 83 H TSH 2.891 Urine Color Urine Appearance Urine pH Ur Specific [place] Urine Protein Urine Glucose (UA) Urine Ketones Urine Blood Urine Nitrite Urine Bilirubin Urine Urobilinogen Ur Leukocyte Esterase Adenovirus (PCR) B. pertussis DNA (PCR) B.parapertussis DNA PCR Lyme Disease Screen Negative C. pneumoniae DNA (PCR) Coronavirus OC43 (PCR) Coronavirus HKU1 (PCR) Coronavirus 229E (PCR) SARS-CoV-2 (PCR) Coronavirus NL63 (PCR) Human Metapneumovir PCR Influenza Type A (PCR) Influenza Type B (PCR) M. pneumoniae (PCR) Parainfluenza 1 (PCR) Parainfluenza 2 (PCR) Parainfluenza 3 (PCR) Parainfluenza 4 (PCR) RSV (PCR) Entero/Rhino (PCR) Diagnostic Findings Abdomen/Pelvis CT 08/23/24 01:21 EXAM: CT abd pelvis IV con only CLINICAL HISTORY: abdominal pain, weight loss, N/V TECHNIQUE: Contiguous axial images were obtained from the level of the diaphragm to the pubic symphysis with intravenous contrast. Coronal and sagittal reconstructions were likewise performed and indicated to increase the sensitivity for detecting clinically relevant pathology. If IV contrast material had not been administered, the likelihood of detecting abnormalities relevant to the patient's condition would have been substantially decreased. CT scan was performed according to ALARA (as low as reasonable achievable). COMPARISON: 07:33:00 RODEO CLOWN FINDINGS: The visualized lung bases are clear. The liver is normal in size and attenuation. Few tiny hypodense lesions are noted in the left lobe- appear simple cyst. There is no intra or extrahepatic biliary ductal dilatation. Hepatic vasculature is patent. The gallbladder is present. The spleen, pancreas, and adrenal glands are unremarkable. The kidneys are normal in size and attenuation. There is no hydronephrosis or perinephric fat stranding. No renal calculi or renal masses are identified. Simple cortical cyst of size 2 mm is noted involving the right kidney. The ureters are normal in caliber and no ureteral calculi are seen. The bladder is normal in contour. Pelvic viscera are unremarkable. Diffuse mucosal enhancement are noted involving small bowel loop predominantly jejunal and proximal ileal loops- possibility of mild enteritis changes Abdominal and pelvic vasculature is patent. No adenopathy or fluid collections are seen. No aggressive appearing osseous lesions are identified. IMPRESSION: 1. Few simple hepatic cyst.-stable. 2. 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 3. Diffuse mucosal enhancement are noted involving small bowel loop predominantly jejunal and proximal ileal loops- possibility of mild enteritis changes- clinical correlation suggested.- appears more prominent at as compared to prior study. Electronically signed by Daryl Byrne 08-23-2024 03:[address] 08/23/24 01:21 EXAM: CT chest diagnostic w con CLINICAL HISTORY: unintentional weight loss, vomiting TECHNIQUE: Contiguous axial images were obtained from the neck base through the upper abdomen without contrast. In addition, sagittal and coronal reconstructions were performed to potentially increase the sensitivity for the detection of disease. CT scan was performed according to ALARA (as low as reasonable achievable). COMPARISON: February: 19:17:47 RODEO CLOWN. FINDINGS: The lungs are clear, with no focal areas of consolidation. No pulmonary nodules are seen. The central airways are patent. There are no pleural effusions. No pneumothorax is seen. Evaluation of the mediastinum and allie is limited due to the lack of intravenous contrast. No axillary or mediastinal adenopathy is identified. The thyroid is unremarkable. The heart, aorta, and pulmonary arteries are of normal size and configuration. There are no appreciable coronary artery and aortic atherosclerotic calcifications. No pericardial effusion is identified. No aggressive appearing osseous lesions are identified. IMPRESSION: 1. No significant abnormality detected No other new interval abnormality since prior study. Electronically signed by Daryl Byrne 08-23-2024 03:[address] 08/23/24 01:21 EXAM: CT head/brain wo con CLINICAL HISTORY: weight loss, vomiting TECHNIQUE: Multiple axial images are obtained from the skull base to the vertex without contrast. CT scan was performed according to ALARA (as low as reasonable achievable). COMPARISON: 18:39:18 [facility]O CLOWN FINDINGS: There is cerebral atrophy. No evidence of space occupying lesion, hemorrhage, edema, mass effect, midline shift, extra axial collection, or hydrocephalus is noted. Basal cisterns are symmetric and normal in size and configuration. There are scattered periventricular hypodensities as can be seen with chronic microvascular ischemic changes. The jackson-white matter differentiation is preserved. Visualized paranasal sinuses and mastoid air cells are well aerated. Orbital contents are within normal limits. Bony structures are intact. IMPRESSION: 1. No evidence of acute intracranial abnormality is demonstrated. 2. Chronic microvascular ischemic changes. 3. Cerebral atrophy. No other new interval abnormality since prior study. Electronically signed by Daryl Byrne 08-23-2024 03:08 AM Medications Administered 1L NSS Promethazine HCl 25 mg IM Ondansetron 4 megs IV Metoclopramide 10 mg IV Ketorolac 10 mg IV Famotidine 20 mg IV Acetaminophen 1 g IV ECG Additional Comments: Initial EKG Sinus bradycardia with sinus arrhythmia biatrial lodgment 59 bpm, NH 138, QRS 78, QT/QTc 456/451, PRT 81/69/74 Second EKG NSR, biatrial enlargement 62 bpm, NH 134, QRS 78, QT/QTc 458/464, PRT 79/61/63 Code Status & VTE Plan Code Status Full Supervising Physician Co-Signing Physician Notes patient seen and examined, chart reviewed, case discussed with CASSANDRA Moon and I agree with the assessment and plan as document above. In brief, patient is a 59-year-old male with history of GERD, hyperlipidemia, hypertension presenting with several days of nausea and vomiting. Patient also with significant unintentional weight loss (50 pounds over the last year) as well as night sweats. Patient has been seen by his PCP for this specific complaint and has had testing performed to include CRP, HIV, hep C, RPR and colonoscopy all of which are pending. On exam patient is sleeping + S1, S2, regular, no murmur/rub/gallops Lungs CTA anteriorly Abdomen soft, nontender, nondistended Extremities warm and well-perfused Labs and images reviewed Significant for leukocytosis with neutrophil predominance, elevated platelets of 405, mild hyponatremia at 132 TB testing has been sent by the ER Additional information obtained from patient's at bedside (patient was asleep at this time.) she does report the patient was diagnosed with bipolar disorder in 2017 after being started on paroxetine. He had some sharp fluctuations in his mental health after medication changes (specifically increasing paroxetine and decreasing his as needed benzos) states that he has been displaying some odd behaviors as well as possibly hypomania, eating less, more active. She is not sure if he is drinking more or using any kind of substances. She states that he would likely be reluctant to meet with psychiatry and reluctant to accept treatment for his possible bipolar disorder Will check alcohol level and urine toxicology Consider psychiatric consultation PG Care Time/CCT Total # of Minutes Spent Total Time Spent with Patient: Total time spent is greater than 50% in coordination of care (as documented) at patient's floor/unit and/or counseling patient: Coding Level of Care Code 42788 INT INP/OBS CARE 3/75MIN Diagnoses Vomiting R11.10 Elevated troponin R79.89
[2024-08-23] MEDS: FAMOTIDINE 20MG IV PUSH 20 MG/5 ML SYR IV STA (04:58)
[2024-08-23] MEDS: METOCLOPRAMIDE HCL INJ 5 MG/ML 2 ML VIAL IV STA (04:58)
[2024-08-23] MEDS ORDERED: KETOROLAC TROMETHAMINE 15 MG/ML VIAL IV PRN (05:33)
[2024-08-23] MEDS ORDERED: ONDANSETRON INJ 2 MG/ML 2 ML VIAL IV PRN (05:33)
[2024-08-23] MEDS: LACTATED RINGER'S 1,000 ML IV SCH (06:20)
[2024-08-23] MEDS ORDERED: ACETAMINOPHEN 325 MG TAB PO PRN ×2 (06:47→08:21)
[2024-08-23 07:54] LABS: Amphetamines+Metham, Urine Neg (Neg); Barbiturates, Urine Neg (Neg); Benzodiazepine, Urine Neg (Neg); Cocaine, Urine Neg (Neg); Fentanyl, Urine Neg (Neg); MDMA (Ecstacy), Urine Neg (Neg); Marijuana, Urine Pos (Neg); Methadone, Urine Neg (Neg); Opiate, Urine Neg (Neg); Phencyclidine, Urine Neg (Neg)
--- NOTE | 2024-08-23 08:04 | Hospitalist Progress Note ---
Date of Service August 23, 2024 Assessment & Plan (1) Gastritis: (2) Nausea & vomiting: (3) GERD (gastroesophageal reflux disease): (4) Abdominal pain: (5) Weight loss, non-intentional: (6) Hypertension: (7) Elevated troponin: Plan 59-year-old male PMHx GERD, allergic rhinitis, dyslipidemia, migraines, and HTN presenting for N/V x 2 to 3 days. ED evaluation reveals leukocytosis 16.27, platelets 405; sodium 134, chloride 97, BUN 29, BUN/creatinine ratio 35.4, glucose 132, troponin 43.3 and then on repeat 38.1; LFTs WNL; lipase 83; TSH 2.891; UA negative for infection; BioFire negative; TB test pending; CTAP reveals diffuse mucosal enhancement involving small bowel loop predominantly jejunal and proximal ileal loops possibility of mild enteritis changes, with stable hepatic and renal cyst; chest CT without acute findings; head CT without acute findings but does reveal chronic changes; EKG sinus bradycardia with sinus arrhythmia and biatrial enlargement at 59 bpm initially, repeat EKG normal sinus rhythm with biatrial enlargement 62 bpm. Was provided with 1L NSS, promethazine 25 IM, ondansetron 4 mgs IV, metoclopramide 10 mg IV, ketorolac 10 mg IV, famotidine 20 mgs IV, acetaminophen 1 g IV in ED. #Unintended weight loss Was significantly overworked with insufficient caloric intake over the summer, no prior notes suggesting weight loss until fall Thyroid cancer in mother (cause of ), maternal grandfather stomach cancer, mother uterine cancer, niece with crohns full liquid diet, advance as tolerated - Boost protein shakes as tolerated Antiemetics as needed to tolerate PO intake Ordered peripheral smear pathology consult Pending TB labs H. pylori antigen stool for continued epigastric pain despite negative findings aside from gastritis on EGD 05/28/24, no urea breath test available Consider GI consult #Nausea & Vomiting 2-3 days N/V, associated 50lb weight loss over past year and night sweats. Being evaluated by PCP and found to have gastritis; testing included CRP, HIV, Hep C, RPR, colonoscopy, and H.pylori (stool) and results still pending. Has been on Augmentin for a few days for an R ear infection and initially symptoms thought to be secondary to antibiotic related adverse effects. However given ongoing nausea and vomiting as well as patient's body habitus, PCP was concerned for dehydration and referred patient to ED. No history of C. difficile. ? early dementia and forgetfulness specifically forgetting when to eat, may be contributing to weight loss portion. Given weight loss and night sweats, ED initiated TB workup. - CBC leukocytosis 13.27, CMP sodium 134, BUN 29, ratio 35.4, chloride 97; lipase 83 - CBC a.m. - CTAP diffuse mucosal enhancement involving the small bowel loop predominantly jejunal/proximal ileal bowel loops possibility of enteritis changes - Full liquid diet; advance as patient tolerates - IVF with LR 80 mL/hr - Zofran prn n/v, ketorolac prn pain, Reglan added prn - Pending stool studies - Pending TB studies - EGD from 05/28/24 showing diffuse gastritis, but pathology report H&E with no concern for H. pylori thus no immunochemical stain H. pylori antigen stool for continued epigastric pain despite negative findings aside from gastritis on EGD 05/28/24, no urea breath test available Consider GI consult as appropriate Continue Zofran, Reglan on board prn as alternative #Diffuse gastritis with accompanying epigastric abdominal pain, history of GERD Pepcid 20mg qhs, PPI qAM as seen on EGD 05/28/24, path report of biopsies not indicative of H. pylori infection H. pylori antigen stool for continued epigastric pain #Elevated troponin Pt w/ occasional chest pressure per patient's , no current chest pain - Troponin 43.3 -> 38.1 - EKG on 2 separate occasions revealed sinus rhythm without ischemic changes- EKG as needed chest pain - Likely 2/2 demand #R ear infection Being treated for R ear infection/?perforation. Prescribed drops (Floxin) and Augmentin. Is to follow with [facility] outpatient. - Augmentin d/c'd at 08/22/2024 visit - Continue ofloxacin drops #GERD- Pantoprazole 20mg PO qhs #HTN- Amlodipine Dispo: Admit, med/sx VTE Prophylaxis: SCDs Admission and Anticipated Discharge Date Admission Date: August 23, 2024 Supervising Physician Co-Signing Physician Notes I personally examined the patient and verified thomson points of history and exam, discussed case, and agree with decision making and plan documented by Dr. Simons. Patient is a 59-year-old male with unintentional weight loss. Patient down 45 lbs since May 2023. Also reports night sweats, denies fevers or chills, occasional cough noted by Cassy. On exam patient appears cachectic, non diaphoretic, conjunctiva clear, mucosa moist, perforated TM on right/normal on left, non-labored breathing, lungs clear to auscultation bilaterally, no rales/rhonchi/wheezing, heart with regular rate and rhythm, no murmur appreciated, bowel sounds present and no tenderness in the abdomen, lower extremities without edema, no appreciable rash. Vitals stable. TB testing pending. History of prediabetes, recheck A1c. CT abd imaging showed diffuse mucosal enhancement of jejunum and ileum, possible enteritis. CT chest negative. Patient plans on having colonoscopy soon for screening and chronic rectal bleeding due to hemorrhoids. Patient has a history of alcohol abuse but denies current use, occasional use of cannabinoids. Advised trial of different antiemetics to see what helps his nausea. Nutrition consulted. Jhoan Ibanez was seen and evaluated at bedside in his room in the ED, appearing tired but in no acute pain or distress. Endorses 2 days of nausea, vomiting, and diarrhea with some red coloration though BMs have stopped due to lack of food intake. present, endorses hx of drenching night sweats. Of note, he was placed on Augmentin for a R middle ear infection with TM perforation within the week, and has known history of gastritis. Endorses 50lb weight loss was unintended, but feels major contributor was when he was working long days outside over the summer, often working through lunch. States he has has issues with nausea and vomiting for over a year, notes prior alcohol history but despite stopping drinking his GI symptoms have persisted. Endorses he has been taking zosyn for nausea/vomiting but it has not been working as well recently. Endorses minimal food intake, a few sips of a cream soup, milk, and 2 popsicles. Endorses he has been drinking Boost protein shakes, will continue those as tolerated. Notes his mother had uterine and thyroid cancers, stomach cancer has also shown up in his family. No personal history of cancer, and last colonoscopy in 2020 was unremarkable. Only significant international travel was [place] for 30 days. Physical Exam Physical Exam: General: A&Ox3, in no acute distress HEENT: EOM intact, anicteric sclerae, slightly dry oral mucus membranes CV: RRR, +s1/s2, no m/r/g Resp: No respiratory distress, Lungs clear to auscultation b/l, no wheezes/rales/rhonchi GI/Abd: hypoactive bowel sounds, abdomen cachectic, tenderness to palpation mainly in RUQ and epigastric regions MSK: No deformities; pulses palpable and equal; no edema. 5/5 strength in all extremities Neuro: no facial droop, speech intact Results & Data Results & Data Vital Signs (Past 12 Hours) Vital Signs Temp Pulse Resp BP Pulse Ox O2 Del Method 08/23/24 06:30 73 17 184/98 H 97 Room Air 08/23/24 05:03 64 16 161/102 H 97 Room Air 08/23/24 04:56 63 08/23/24 04:00 62 15 185/97 H 97 Room Air 08/23/24 03:30 67 14 165/88 H 98 Room Air 08/23/24 02:30 59 L 16 171/98 H 96 Room Air 08/23/24 02:00 57 L 14 185/104 H 95 Room Air 08/23/24 01:30 63 12 97 Room Air 08/23/24 01:21 94 Room Air 08/23/24 01:12 66 17 185/102 H 97 Room Air 08/23/24 01:04 66 08/23/24 00:57 36.3 C L 73 16 172/100 H 94 Room Air Resident Activity Tracking Resident Involvement: Resident Care Provided Care Provided: Adult Hospital Medicine (1) Gastritis Chronicity: chronic Gastritis bleeding: presence of bleeding unspecified Gastritis type: unspecified gastritis Qualified Code(s): K29.50 - Unspecified chronic gastritis without bleeding
[2024-08-23] MEDS ORDERED: MAGNESIUM HYDROXIDE SUSP 30 ML UDC PO PRN (08:21)
[2024-08-23] MEDS: amLODIPine BESYLATE 5 MG TAB PO SCH (10:01)
[2024-08-23] MEDS: PANTOprazole 40 MG TAB PO SCH (10:01)
[2024-08-23] MEDS: OFLOXACIN 0.3% 75 DROPS/5 ML BTL OT SCH (10:01)
[2024-08-23] MEDS: ONDANSETRON INJ 2 MG/ML 2 ML VIAL IV PRN (10:02)
[2024-08-23] MEDS: METOCLOPRAMIDE HCL 10 MG TABLET PO PRN (20:22)
[2024-08-23] MEDS: FAMOTIDINE 20 MG TAB PO SCH (20:22)
--- NOTE | 2024-08-23 20:28 | Electrocardiogram Report ---
Test Reason : Blood Pressure : */* mmHG Vent. Rate : 59 BPM Atrial Rate : 59 BPM P-R Int : 138 ms QRS Dur : 78 ms QT Int : 456 ms P-R-T Axes : 81 69 74 degrees QTcB Int : 451 ms Sinus bradycardia with sinus arrhythmia Biatrial enlargement Abnormal ECG When compared with ECG of 30-Nov-2022 16:55, QT has lengthened Confirmed by Jason Fletcher ([id number]) on 08/23/2024 8:28:41 PM Referred By: REFERRED SELF Confirmed By: Jason Fletcher
--- NOTE | 2024-08-23 20:28 | Electrocardiogram Report ---
Test Reason : Blood Pressure : */* mmHG Vent. Rate : 62 BPM Atrial Rate : 62 BPM P-R Int : 134 ms QRS Dur : 78 ms QT Int : 458 ms P-R-T Axes : 79 61 63 degrees QTcB Int : 464 ms Normal sinus rhythm Biatrial enlargement Abnormal ECG When compared with ECG of 23-Aug-2024 01:40, (unconfirmed) No significant change was found Confirmed by Jason Fletcher ([id number] on 08/23/2024 8:28:50 PM Referred By: REFERRED SELF Confirmed By: Jason Fletcher
--- NOTE | 2024-08-24 07:15 | Hospitalist Progress Note ---
Date of Service August 24, 2024 Assessment & Plan (1) Gastritis: (2) Malnutrition: (3) Weight loss, non-intentional: (4) GERD (gastroesophageal reflux disease): (5) Abdominal pain: (6) Hypertension: (7) Cognitive and behavioral changes: (8) Overflow diarrhea: Plan 59-year-old male PMHx GERD, allergic rhinitis, dyslipidemia, migraines, and HTN presenting for N/V x 2 to 3 days. ED evaluation reveals leukocytosis 16.27, platelets 405; sodium 134, chloride 97, BUN 29, BUN/creatinine ratio 35.4, glucose 132, troponin 43.3 and then on repeat 38.1; LFTs WNL; lipase 83; TSH 2.891; UA negative for infection; BioFire negative; TB test pending; CTAP reveals diffuse mucosal enhancement involving small bowel loop predominantly jejunal and proximal ileal loops possibility of mild enteritis changes, with stable hepatic and renal cyst; chest CT without acute findings; head CT without acute findings but does reveal chronic changes; EKG sinus bradycardia with sinus arrhythmia and biatrial enlargement at 59 bpm initially, repeat EKG normal sinus rhythm with biatrial enlargement 62 bpm. Was provided with 1L NSS, promethazine 25 IM, ondansetron 4 mgs IV, metoclopramide 10 mg IV, ketorolac 10 mg IV, famotidine 20 mgs IV, acetaminophen 1 g IV in ED. #Unintended weight loss / Malnutrition Was significantly overworked with insufficient caloric intake over the summer, no prior notes suggesting weight loss until fall Thyroid cancer in mother (cause of ), maternal grandfather stomach cancer, mother uterine cancer, niece with crohns Antiemetics as needed to tolerate PO intake Advancing diet from full liquids to regular as he has been tolerating full liquids well Ordered peripheral smear pathology consult - pending Pending TB labs Pending H. pylori antigen stool for continued epigastric pain despite negative findings aside from gastritis on EGD 05/28/24, no urea breath test available Nutrition on board and following #Nausea & Vomiting 2-3 days N/V, associated 50lb weight loss over past year and night sweats. Being evaluated by PCP and found to have gastritis; testing included CRP, HIV, Hep C, RPR, colonoscopy, and H.pylori (stool) and results still pending. Has been on Augmentin for a few days for an R ear infection and initially symptoms thought to be secondary to antibiotic related adverse effects. However given ongoing nausea and vomiting as well as patient's body habitus, PCP was concerned for dehydration and referred patient to ED. No history of C. difficile. ? early dementia and forgetfulness specifically forgetting when to eat, may be contributing to weight loss portion. Given weight loss and night sweats, ED initiated TB workup. - CBC leukocytosis 13.27, CMP sodium 134, BUN 29, ratio 35.4, chloride 97; lipase 83 - CBC a.m. - CTAP diffuse mucosal enhancement involving the small bowel loop predominantly jejunal/proximal ileal bowel loops possibility of enteritis changes; moderate impacted stool - Zofran prn n/v, ketorolac prn pain, Reglan added prn Advanced diet from full liquids to regular as pt has been tolerating well - Pending TB studies - EGD from 05/28/24 showing diffuse gastritis, but pathology report H&E with no concern for H. pylori thus no immunochemical stain Pending H. pylori antigen stool for continued epigastric pain despite negative findings aside from gastritis on EGD 05/28/24 #Overflow Diarrhea having watery diarrhea, stool biofire negative; pending H pylori stool antigen CT abd/pelvis 08/23/24 showing moderate stool impaction in colon Miralax ordered to help loosen up and clear out impacted stool #Cognitive and behavioral changes Symptoms such as hyperactivity, lack of need for sleep, impulsivity, mood swings with paroxetine and high amount of fluticasone nasal spray Additionally recent forgetfulness, forgets to eat and forgets where he places important things such as thomson fobs, etc Considering diagnoses of bipolar, ADHD, frontotemporal dementia, alcoholic encephalopathy due to long history, among others Psych liaison has seen patient, Dr. Quinn will see pt this afternoon 08/24 or tomorrow 08/25 #Diffuse gastritis with accompanying epigastric abdominal pain, history of GERD Pepcid 20mg qhs, PPI qAM as seen on EGD 05/28/24, path report of biopsies not indicative of H. pylori infection H. pylori antigen stool for continued epigastric pain - pending #Elevated troponin Pt w/ occasional chest pressure per patient's , no current chest pain - Troponin 43.3 -> 38.1 - EKG on 2 separate occasions revealed sinus rhythm without ischemic changes- EKG as needed chest pain - Likely 2/2 demand #R ear infection Being treated for R ear infection/?perforation. Prescribed drops (Floxin) and Augmentin. Is to follow with [facility] outpatient. - Augmentin d/c'd at 08/22/2024 visit - R ear fluid culture growing Pseudomonas aeruginosa Continue ofloxacin drops #Nicotine withdrawal Cigar smoker many days Ordered daily nicotine patches #GERD- Pantoprazole 20mg PO qhs #HTN- Amlodipine Dispo: Admit, med/sx VTE Prophylaxis: SCDs Admission and Anticipated Discharge Date Admission Date: August 23, 2024 Supervising Physician Co-Signing Physician Notes I personally examined the patient and verified thomson points of history and exam, discussed case, and agree with decision making and plan documented by Dr. Simons. Cassy at bedside. Patient hopeful to advance diet, encouraged use of antiemetics to help with symptoms of nausea. Reviewed A1c remains in prediabetic range. Awaiting TB testing results. Reviewed importance of endoscopy outpatient, patient has appointment scheduled. Patient thankful for nutrition consultation. Psychiatric evaluation will be helpful. Jhoan Ibanez was seen and evaluated at bedside in his room in the ED, appearing tired but in no acute pain or distress. Endorses his nausea and vomiting have improved and he has been able to eat more, requesting regular diet up from full liquids. States abdominal pain has also improved, denies any discomfort at this time. Discussed at length pt's psych history, including the fact that he was diagnosed with bipolar in 2016 but never on a mood stabilizer. Most of the time he was functioning well on no medications, but he was given paroxetine once which seemed to induce symptoms of cindy. He additionally was on a fluticasone nasal spray in spring 2023, which he used much more than the instructed dose/frequency, thus inducing symptoms of cindy. Symptoms include hyperactivity, lack of need for sleep, distractibility, impulsivity, and mood swings. Physical Exam Physical Exam: General: A&Ox3, in no acute distress HEENT: EOM intact, anicteric sclerae, slightly dry oral mucus membranes CV: RRR, +s1/s2, no m/r/g Resp: No respiratory distress, lungs clear to auscultation b/l, no wheezes/ra les/rhonchi GI/Abd: normoactive bowel sounds, abdomen cachectic, mild tenderness to palpation of epigastric region MSK: No deformities; pulses palpable and equal; no edema. 5/5 strength in all extremities Neuro: no facial droop, speech intact Results & Data Results & Data Vital Signs (Past 12 Hours) Vital Signs Temp Pulse Pulse Resp BP Pulse Ox O2 Del Method 08/24/24 02:55 36.5 C 61 18 124/78 96 Room Air 08/23/24 22:44 36.6 C 62 18 138/72 97 Room Air 08/23/24 21:45 58 L 08/23/24 20:15 Room Air 08/23/24 19:35 36.7 C 68 18 132/76 96 Room Air Resident Activity Tracking Resident Involvement: Resident Care Provided Care Provided: Adult Hospital Medicine (1) Gastritis Chronicity: chronic Gastritis bleeding: presence of bleeding unspecified Gastritis type: unspecified gastritis Qualified Code(s): K29.50 - Unspecified chronic gastritis without bleeding (2) Malnutrition Malnutrition type: unspecified type Qualified Code(s): E46 - Unspecified protein-calorie malnutrition
[2024-08-24 07:36] LABS: Calcium 9.1 mg/dl (8.6-10.3); Creatinine Clr Calc Pharmacy 86.6 ml/min; Hematocrit (blood only) 39.3 % (42.0-52.0); Hemoglobin 13.7 g/dl (14.0-18.0); Mean Corpuscular Hemoglobin 30.9 pg (25.0-34.0); Mean Corpuscular Hgb Conc 34.9 g/dL (32.0-36.0); Mean Corpuscular Volume 88.5 fL (80.0-100.0); Mean Platelet Volume 9.3 fL (9.4-12.4); Platelet Count 367 K/uL (130-400); Potassium 3.5 mmol/L (3.5-5.1); RDW Standard Deviation 38.5 fL (36.4-46.3); Red Blood Count 4.44 M/uL (4.70-6.10); White Blood Count 7.67 K/ul (4.8-10.8)
[2024-08-24 07:48] LABS: Estimated Average Glucose 128 mg/dl; Hemoglobin A1C 6.1 % (4.5-5.6)
[2024-08-24] MEDS: BENZONATATE 100 MG CAPSULE PO PRN (07:57)
[2024-08-24 10:25] LABS: Adenovirus F 40/41 PCR Not Detected (NotDetected); Astrovirus PCR Not Detected (NotDetected); Campylobacter PCR Not Detected (NotDetected); Cryptosporidium PCR Not Detected (NotDetected); Cyclospora cayetanensis PCR Not Detected (NotDetected); Entamoeba histolytica PCR Not Detected (NotDetected); Enteroaggregative E.coli(EAEC) Not Detected (NotDetected); Enteropathogenic E.coli (EPEC) Not Detected (NotDetected); Enterotoxigenic E.coli (ETEC) Not Detected (NotDetected); Giardia lamblia PCR Not Detected (NotDetected); Norovirus GI/GII PCR Not Detected (NotDetected); Plesiomonas shigelloides PCR Not Detected (NotDetected); Rotavirus A PCR Not Detected (NotDetected); Salmonella PCR Not Detected (NotDetected); Sapovirus PCR Not Detected (NotDetected); Shiga-like Toxin E.coli (STEC) Not Detected (NotDetected); Shigella/Enteroinvasive E.coli Not Detected (NotDetected); Vibrio cholerae PCR Not Detected (NotDetected); Vibrio species PCR Not Detected (NotDetected); Yersinia enterocolitica PCR Not Detected (NotDetected)
[2024-08-24] MEDS: NICOTINE 7 MG/24 HR TDSY TD SCH (11:57)
[2024-08-24] MEDS ORDERED: POLYETHYLENE (MIRALAX) 17 GM PACK PO PRN (16:10)
[2024-08-24] MEDS: POLYETHYLENE (MIRALAX) 17 GM PACK PO PRN (16:57)
[2024-08-24] MEDS: NICOTINE POLACRILEX 2 MG GUM MT PRN (17:17)
[2024-08-24 19:39] VITALS: RESP 18
[2024-08-24 23:16] VITALS: BP 122/72; TEMP 98.1; O2SAT 96
--- NOTE | 2024-08-25 01:10 | Communication Note ---
Date of Service: August 25, 2024 Received message from nurse that pt is leaving AMA. Pt left without being seen by me. Left without discharge paperwork completed for med rec.
[2024-08-25 01:22] VITALS: PULSE 64
[2024-08-25] MEDS ORDERED: NICOTINE 14 MG/24 HR PATCH TD SCH (09:00)
--- NOTE | 2024-08-25 11:46 | Communication Note ---
Date of Service: August 25, 2024 Attempted to call patient's , Cassy Boyce this morning around 11:35am at [phone] [facility]. Called to let her know that I have put in a work release note excusing Shamar from work for days missed due to medical appointments and hospitalization, namely 08/22/24 - 08/24/24. Additionally called to mention that tuberculosis and peripheral smear lab results are still pending, but we will report back once they have resulted. As Shamar was not seen by the psychiatrist while inpatient, we would at least like for him to follow up with psychiatry as an outpatient, which can be set up through PCP Dr. Hart, but we will additionally have case management on our end try to set up something as our psych liaison did see him yesterday 08/24/24.
[2024-08-25 15:01] LABS: Quantiferon Mitogen-NIL >10.00 IU/mL; Quantiferon NIL 0.01 IU/mL; Quantiferon TB Gold Plus NEGATIVE (NEGATIVE); Quantiferon TB1-NIL 0.01 IU/mL
[2024-08-26 12:27] LABS: Marijuana Quant, GCMS Urine 213 ng/mL (<5)
== END 2024-08-25 00:20 | disposition left against medical advice (07) | DRG 392 ==
LOC: SUATTDRO → ED 00:55 → SUATTDRO 05:25 → EDINP 05:25 → 2W 17:21